=== PATIENT | female | born 1955 | race Caucasian/White ===

== ENCOUNTER → 2017-10-31 | Outpatient (CLI) | payer MEDICARE, OTHER ==
[~2017-10-31] MED LIST: AC325T PO; ALBU8.5H2 IH; ALBU8.5H2 PO; ALBU8.5HRX IH; AMLO5TAB2 PO; ARTHROTEC; ASP81CT; ASP81TEC PO; CALC-140 PO; CETI10CA PO; CLAR-19 PO; CTLP20T PO; CYCL10TA9 PO; DICL/MIS50 PO; DICL100G13 TOP; DICL1TAB49 PO; DILT120C54 PO; DILT180C67 PO; DOCU100C37 PO; DOXY100C42 PO; DULO30CA3 PO; DULO60CA6 PO; ENXP40I.4 SC; ESCI10TA55 PO; FENT1PAT58 TD; FENT1PAT9 TD; FLD5TCR; FLD5TCR PO; FLUT16SP22 NS; FLUT1DIS26 IH; FLUT1DIS26 PO; FLUT8AER2 IH; FNT25TD TOP; FOLI0.4T2 PO; FOLI0.8C PO; GABA300C PO; GABA600T2 PO; GBPN600T PO; HDR2A IV; HYDR1TAB66 PO; IBUP-15 PO; INSU100V5 SC; INSU100V5 SQ; Insulin Human Lispro SC; K ZOSYN IV; KCL20TCR PO; LOSA50TA6 PO; LSRT50T PO; LVF500T; MAGN400T6 PO; MERO500V IV; METF-380 PO; METH4TAB PO; MMT17NA; MNTL10T PO; MONT10TA21 PO; MONT10TA24 PO; MTF500T PO; MULT-1029 PO; MULT1TAB63 PO; NACL30SP2 NS; NAFCILLIN 2 GM IV; NF-DICLTB PO; NF-DURA12P TD; NF-METANX; NS10S IV; OMEP10CA4 PO; OMEP20CA12 PO; ONDA2VIA IV; OSCAL PO; OXC20TCR PO; OXC5T PO; OXYC-12 PO; OXYC-191 PO; OXYC-473 PO; Oxycodone Hcl PO; PANT20TA2 PO; PANT40TA2 PO; PED18TAB2 PO; POLY17PO23 PO; POTA10TA PO; POTA10TA36 PO; POTA20TA15 PO; PRD20T PO; PREDNISON; PROP1TAB77; PSEU240T5 PO; Pantoprazole Sodium PO; Polyethylene Glycol PO; RT-ADVAIR1 IH; SENN-1 PO; SENN1TAB76 PO; SULF-222 PO; SULF1TAB7 PO; THIA100T12 PO; THIA100T7 PO; TIZA4TAB55 PO; TRIA1TAB3 PO; TRIA1TAB42; TRIA1TAB5 PO; Tizanidine Hcl PO; VALACYCLOVIR HCL PO; ZOFRAN; [UNRECOGNIZED DRUG - OTHER] IV; [UNRECOGNIZED DRUG - OTHER] PO; fentanyl patch TD; hctz; metanx
== END ==
LOC: RAD 14:50
PROVIDERS: ATTEND Nurse Practitioner Family
DX: Z12.31 Encounter for screening mammogram for malignant neoplasm of breast (principal)
CPT/HCPCS: 77067

== ENCOUNTER → 2018-02-21 | Outpatient (CLI) | payer MEDICARE, OTHER ==
--- NOTE | 2018-02-21 12:08 | Diagnostic Imaging Report ---
PROCEDURE: US Thyroid. TECHNIQUE: Multiple real-time grayscale images were obtained of the thyroid in various projections. INDICATION: Abnormal thyroid function studies. No prior study is available for comparison. FINDINGS: The right lobe of the thyroid measures 3.7 x 2.0 x 1.7 cm and the left lobe measures 3.3 x 1.7 x 1.1 cm. The left lobe does contain a fairly well-circumscribed solid nodule in the mid upper aspect measuring 1.2 x 0.7 x 0.8 cm. No associated microcalcifications are seen. The right lobe does contain a solid mass in the mid to lower pole measuring 1.8 x 1.0 x 1.1 cm this appears to contain a macrocalcification. No other thyroid masses are seen. IMPRESSION: Bilateral thyroid nodules. Dominant nodule is on the right and does contain calcification. Fine needle aspiration of the right sided nodule would be recommended for further evaluation. Dictated by: Dictated on workstation # [id number]
== END ==
LOC: RAD 10:44
PROVIDERS: ATTEND Family Medicine
DX: E04.2 Nontoxic multinodular goiter (principal)
CPT/HCPCS: 76536

== ENCOUNTER → 2018-03-03 | Outpatient (CLI) | payer MEDICARE, OTHER ==
[~2018-03-03] VITALS: Ht 157.5 cm; Wt 112.0 kg
[~2018-03-03] MED LIST changes: +LIDOCAINE 1% INJ 50 ML (XYLOCAINE) VIAL IJ ONE
[2018-03-03 13:02] VITALS: BP 124/81
[2018-03-03 13:55] VITALS: BP 126/80
--- NOTE | 2018-03-03 16:23 | Diagnostic Imaging Report ---
INDICATION: Thyroid nodules. The patient presents for right thyroid nodule fine-needle aspiration. FINDINGS: The patient was brought to the procedure room and placed on the bed in the supine position. Ultrasound imaging over the right neck was performed to evaluate for an appropriate entry site. The neck was prepped and draped in the usual sterile fashion. A small amount of 1% lidocaine was utilized for local anesthesia. A total of 4 passes was made into the solid nodule in the lower pole of the right lobe of the thyroid utilizing 25-gauge needles. Fine-needle aspiration was performed. Hemostasis was obtained using manual compression. The patient tolerated the procedure well and left the Department in stable condition. IMPRESSION: Ultrasound guided fine needle aspiration of the solid nodule in the lower pole of the right lobe of the thyroid, as described. Dictated by: Dictated on workstation # [id number]
== END ==
LOC: RAD 12:53
PROVIDERS: ATTEND Family Medicine
DX: E04.2 Nontoxic multinodular goiter (principal)
CPT/HCPCS: 76942; 88305

== ENCOUNTER 2018-06-19 15:36 | Outpatient (RCR) | payer MEDICARE, OTHER | END 2018-07-29 13:29 | disposition home or self-care (01) | PROVIDERS: ATTEND Orthopaedic Surgery Adult Reconstructive Orthopaedic Surgery | DX: M25.562 Pain in left knee (principal); M25.561 Pain in right knee ==

== ENCOUNTER → 2018-06-19 | Outpatient (CLI) | payer MEDICARE, OTHER ==
[~2018-06-19] MED LIST changes: -LIDOCAINE 1% INJ 50 ML (XYLOCAINE) VIAL IJ ONE
[2018-06-19 08:18] LABS: BASOPHILS % (AUTO) 1 % (0-10); EOSINOPHILS # (AUTO) 0.4 10^3/uL (0.0-0.3); EOSINOPHILS % (AUTO) 5 % (0-10); HEMATOCRIT 41 % (35-52); HEMOGLOBIN 13.2 G/DL (11.5-16.0); LYMPHOCYTES # (AUTO) 2.7 X 10^3 (1.0-4.0); LYMPHOCYTES % (AUTO) 37 % (12-44); MEAN CORPUSCULAR HGB CONC 32 G/DL (32-36); MEAN CORPUSCULAR VOLUME 94 FL (80-99); MEAN PLATELET VOLUME 10.5 FL (7.4-10.4); MONOCYTES # (AUTO) 0.5 X 10^3 (0.0-1.0); MONOCYTES % (AUTO) 6 % (0-12); NEUTROPHILS # (AUTO) 3.7 X 10^3 (1.8-7.8); NEUTROPHILS % (AUTO) 51 % (42-75); PLATELET COUNT 262 10^3/uL (130-400); RED BLOOD COUNT 4.33 10^6/uL (4.35-5.85); RED CELL DISTRIBUTION WIDTH 14.2 % (10.0-14.5); WHITE BLOOD COUNT 7.2 10^3/uL (4.3-11.0)
[2018-06-19 08:19] LABS: MEAN CORPUSCULAR HEMOGLOBIN 30 PG (25-34)
[2018-06-19 08:36] LABS: ALANINE AMINOTRANSFERASE 17 U/L (0-55); ALBUMIN 4.1 GM/DL (3.2-4.5); ALKALINE PHOSPHATASE 43 U/L (40-136); BILIRUBIN,TOTAL 0.6 MG/DL (0.1-1.0); BUN/CREATININE RATIO 18; CALCIUM 9.5 MG/DL (8.5-10.1); CARBON DIOXIDE 29 MMOL/L (21-32); CHLORIDE 102 MMOL/L (98-107); CHOLESTEROL 151 MG/DL (< 200); CREATININE SERUM 0.93 MG/DL (0.60-1.30); GFR ESTIMATED > 60; GLUCOSE 91 MG/DL (70-105); HDL CHOLESTEROL 56 MG/DL (40-60); POTASSIUM 4.4 MMOL/L (3.6-5.0); SODIUM 140 MMOL/L (135-145); TOTAL PROTEIN 6.4 GM/DL (6.4-8.2); TRIGLYCERIDES 66 MG/DL (<150); VLDL CHOLESTEROL 13 MG/DL (5-40)
[2018-06-19 08:57] LABS: FREE T4 (FREE THYROXINE) 1.17 NG/DL (0.70-1.48)
== END ==
LOC: LAB 07:52
PROVIDERS: ATTEND Family Medicine
DX: I10 Essential (primary) hypertension (principal); R94.6 Abnormal results of thyroid function studies; E55.9 Vitamin D deficiency, unspecified
CPT/HCPCS: 36415; 80053; 80061; 82306; 84439; 84443; 85025

== ENCOUNTER 2018-08-06 12:55 | Outpatient (RCR) | payer MEDICARE, OTHER | END 2018-08-10 | disposition home or self-care (01) | PROVIDERS: ATTEND Orthopaedic Surgery Adult Reconstructive Orthopaedic Surgery | DX: Z47.1 Aftercare following joint replacement surgery (principal); Z96.651 Presence of right artificial knee joint ==

== ENCOUNTER 2018-09-01 13:00 | Outpatient (RCR) | payer MEDICARE, OTHER | END 2018-09-12 14:02 | disposition home or self-care (01) | PROVIDERS: ATTEND Orthopaedic Surgery Adult Reconstructive Orthopaedic Surgery | DX: Z47.1 Aftercare following joint replacement surgery (principal); Z96.651 Presence of right artificial knee joint ==

== ENCOUNTER → 2018-11-28 | Outpatient (CLI) | payer MEDICARE, OTHER ==
--- NOTE | 2018-11-28 14:12 | Diagnostic Imaging Report ---
INDICATION: Routine screening. COMPARISON: 10/31/2017 and 12/09/2014. TECHNIQUE: 2D and 3D bilateral screening mammography was performed with CAD. FINDINGS: Both breasts remain heterogeneously dense, limiting the sensitivity of mammography. No mass or malignant appearing microcalcifications are seen. The axillae are unremarkable. IMPRESSION: No mammographic features suspicious for malignancy are identified. ACR BI-RADS Category 1: Negative. Result letter will be mailed to the patient. Note: At least 10% of breast cancer is not imaged by mammography. Dictated by: Dictated on workstation # [id number]
== END ==
LOC: RAD 10:03
PROVIDERS: ATTEND Nurse Practitioner Family
DX: Z12.31 Encounter for screening mammogram for malignant neoplasm of breast (principal)
CPT/HCPCS: 77067

== ENCOUNTER 2019-01-05 09:45 | Outpatient (RCR) | payer MEDICARE, OTHER ==
[~2019-01-05 09:45] MED LIST changes: -GABA600T2 PO
== END 2019-01-27 10:04 | disposition home or self-care (01) ==
PROVIDERS: ATTEND Orthopaedic Surgery Adult Reconstructive Orthopaedic Surgery
DX: Z47.1 Aftercare following joint replacement surgery (principal); Z96.652 Presence of left artificial knee joint

== ENCOUNTER → 2019-01-28 | Outpatient (CLI) | payer MEDICARE, OTHER ==
[2019-01-30 12:45] LABS: BUN/CREATININE RATIO 14; CALCIUM 8.5 MG/DL (8.5-10.1); CARBON DIOXIDE 30 MMOL/L (21-32); CHLORIDE 103 MMOL/L (98-107); CREATININE SERUM 0.79 MG/DL (0.60-1.30); GFR ESTIMATED > 60; GLUCOSE 92 MG/DL (70-105); POTASSIUM 4.5 MMOL/L (3.6-5.0); SODIUM 140 MMOL/L (135-145)
== END ==
LOC: LABNPT 09:47
PROVIDERS: ATTEND Internal Medicine Infectious Disease
DX: T84.54XA Infection and inflammatory reaction due to internal left knee prosthesis, initial encounter (principal)
CPT/HCPCS: 80048; 80202

== ENCOUNTER → 2019-02-02 | Outpatient (CLI) | payer MEDICARE, OTHER ==
[2019-02-02 09:11] LABS: BASOPHILS % (AUTO) 1 % (0-10); EOSINOPHILS # (AUTO) 0.8 10^3/uL (0.0-0.3); EOSINOPHILS % (AUTO) 12 % (0-10); HEMATOCRIT 34 % (35-52); HEMOGLOBIN 10.8 G/DL (11.5-16.0); LYMPHOCYTES # (AUTO) 2.1 X 10^3 (1.0-4.0); LYMPHOCYTES % (AUTO) 30 % (12-44); MEAN CORPUSCULAR HEMOGLOBIN 29 PG (25-34); MEAN CORPUSCULAR HGB CONC 31 G/DL (32-36); MEAN CORPUSCULAR VOLUME 93 FL (80-99); MEAN PLATELET VOLUME 9.9 FL (7.4-10.4); MONOCYTES # (AUTO) 0.5 X 10^3 (0.0-1.0); MONOCYTES % (AUTO) 8 % (0-12); NEUTROPHILS # (AUTO) 3.5 X 10^3 (1.8-7.8); NEUTROPHILS % (AUTO) 50 % (42-75); PLATELET COUNT 390 10^3/uL (130-400); WHITE BLOOD COUNT 7.1 10^3/uL (4.3-11.0)
[2019-02-02 09:33] LABS: ALANINE AMINOTRANSFERASE 8 U/L (0-55); ALBUMIN 3.2 GM/DL (3.2-4.5); ALKALINE PHOSPHATASE 54 U/L (40-136); BILIRUBIN,TOTAL 0.4 MG/DL (0.1-1.0); BUN/CREATININE RATIO 18; CALCIUM 8.7 MG/DL (8.5-10.1); CARBON DIOXIDE 26 MMOL/L (21-32); CHLORIDE 105 MMOL/L (98-107); CREATININE SERUM 0.77 MG/DL (0.60-1.30); GFR ESTIMATED > 60; GLUCOSE 94 MG/DL (70-105); POTASSIUM 4.1 MMOL/L (3.6-5.0); SODIUM 142 MMOL/L (135-145); TOTAL PROTEIN 6.1 GM/DL (6.4-8.2)
[2019-02-02 09:36] LABS: ERYTHROCYTE SEDIMENTATION RATE 33 MM/HR (0-30)
[2019-02-02 09:38] LABS: VANCOMYCIN,TROUGH 14.6 UG/ML (10.0-20.0)
== END ==
LOC: HH 08:00
PROVIDERS: ATTEND Internal Medicine Infectious Disease
DX: M00.9 Pyogenic arthritis, unspecified (principal)
CPT/HCPCS: 80053; 80202; 85025; 85652; 86141

== ENCOUNTER → 2019-02-09 | Outpatient (CLI) | payer MEDICARE, OTHER ==
[2019-02-09 09:41] LABS: BASOPHILS % (AUTO) 1 % (0-10); EOSINOPHILS # (AUTO) 0.7 10^3/uL (0.0-0.3); EOSINOPHILS % (AUTO) 11 % (0-10); HEMATOCRIT 34 % (35-52); HEMOGLOBIN 10.7 G/DL (11.5-16.0); LYMPHOCYTES # (AUTO) 1.6 X 10^3 (1.0-4.0); LYMPHOCYTES % (AUTO) 25 % (12-44); MEAN CORPUSCULAR HEMOGLOBIN 29 PG (25-34); MEAN CORPUSCULAR HGB CONC 31 G/DL (32-36); MEAN CORPUSCULAR VOLUME 93 FL (80-99); MEAN PLATELET VOLUME 10.3 FL (7.4-10.4); MONOCYTES # (AUTO) 0.4 X 10^3 (0.0-1.0); MONOCYTES % (AUTO) 6 % (0-12); NEUTROPHILS # (AUTO) 3.8 X 10^3 (1.8-7.8); NEUTROPHILS % (AUTO) 58 % (42-75); PLATELET COUNT 333 10^3/uL (130-400); RED CELL DISTRIBUTION WIDTH 14.1 % (10.0-14.5); WHITE BLOOD COUNT 6.6 10^3/uL (4.3-11.0)
[2019-02-09 09:54] LABS: ALANINE AMINOTRANSFERASE 10 U/L (0-55); ALBUMIN 3.1 GM/DL (3.2-4.5); ALKALINE PHOSPHATASE 47 U/L (40-136); BILIRUBIN,TOTAL 0.3 MG/DL (0.1-1.0); BUN/CREATININE RATIO 19; CALCIUM 8.9 MG/DL (8.5-10.1); CARBON DIOXIDE 24 MMOL/L (21-32); CHLORIDE 106 MMOL/L (98-107); GFR ESTIMATED > 60; GLUCOSE 98 MG/DL (70-105); POTASSIUM 4.1 MMOL/L (3.6-5.0); SODIUM 139 MMOL/L (135-145)
[2019-02-09 09:59] LABS: ERYTHROCYTE SEDIMENTATION RATE 23 MM/HR (0-30)
[2019-02-09 10:02] LABS: VANCOMYCIN,TROUGH 14.3 UG/ML (10.0-20.0)
== END ==
LOC: HH 08:00
PROVIDERS: ATTEND Internal Medicine Infectious Disease
DX: M00.9 Pyogenic arthritis, unspecified (principal); N39.0 Urinary tract infection, site not specified
CPT/HCPCS: 80053; 80202; 85025; 85652; 86141

== ENCOUNTER → 2019-02-16 | Outpatient (CLI) | payer MEDICARE, OTHER ==
[2019-02-16 09:17] LABS: BASOPHILS % (AUTO) 1 % (0-10); EOSINOPHILS # (AUTO) 0.9 10^3/uL (0.0-0.3); EOSINOPHILS % (AUTO) 15 % (0-10); HEMATOCRIT 36 % (35-52); HEMOGLOBIN 11.5 G/DL (11.5-16.0); LYMPHOCYTES # (AUTO) 1.7 X 10^3 (1.0-4.0); LYMPHOCYTES % (AUTO) 27 % (12-44); MEAN CORPUSCULAR HEMOGLOBIN 29 PG (25-34); MEAN CORPUSCULAR HGB CONC 32 G/DL (32-36); MEAN CORPUSCULAR VOLUME 92 FL (80-99); MEAN PLATELET VOLUME 10.1 FL (7.4-10.4); MONOCYTES # (AUTO) 0.4 X 10^3 (0.0-1.0); MONOCYTES % (AUTO) 7 % (0-12); NEUTROPHILS # (AUTO) 3.2 X 10^3 (1.8-7.8); NEUTROPHILS % (AUTO) 51 % (42-75); PLATELET COUNT 317 10^3/uL (130-400); WHITE BLOOD COUNT 6.2 10^3/uL (4.3-11.0)
[2019-02-16 09:38] LABS: ALANINE AMINOTRANSFERASE 14 U/L (0-55); ALBUMIN 3.2 GM/DL (3.2-4.5); ALKALINE PHOSPHATASE 45 U/L (40-136); BILIRUBIN,TOTAL 0.3 MG/DL (0.1-1.0); BUN/CREATININE RATIO 23; CARBON DIOXIDE 27 MMOL/L (21-32); CHLORIDE 106 MMOL/L (98-107); CREATININE SERUM 0.74 MG/DL (0.60-1.30); GFR ESTIMATED > 60; GLUCOSE 104 MG/DL (70-105); POTASSIUM 4.3 MMOL/L (3.6-5.0); SODIUM 140 MMOL/L (135-145)
[2019-02-16 09:43] LABS: BAND NEUTROPHILS 1 %; BASOPHILS % (MANUAL) 1 %; ELLIPT/OVALOCYTES SLIGHT; EOSINOPHILS % (MANUAL) 18 %; LYMPHOCYTES % (MANUAL) 28 %; MONOCYTES % (MANUAL) 7 %; NEUTROPHILS % (MANUAL) 45 %
[2019-02-16 09:45] LABS: VANCOMYCIN,TROUGH 13.7 UG/ML (10.0-20.0)
[2019-02-16 10:06] LABS: ERYTHROCYTE SEDIMENTATION RATE 20 MM/HR (0-30)
== END ==
LOC: HH 08:00
PROVIDERS: ATTEND Internal Medicine Infectious Disease
DX: M00.9 Pyogenic arthritis, unspecified (principal)
CPT/HCPCS: 80053; 80202; 85007; 85027; 85652; 86141

== ENCOUNTER → 2019-02-23 | Outpatient (CLI) | payer MEDICARE, OTHER ==
[2019-02-23 10:50] LABS: BASOPHILS % (AUTO) 0 % (0-10); EOSINOPHILS # (AUTO) 0.6 10^3/uL (0.0-0.3); EOSINOPHILS % (AUTO) 10 % (0-10); HEMATOCRIT 37 % (35-52); HEMOGLOBIN 11.7 G/DL (11.5-16.0); LYMPHOCYTES # (AUTO) 1.7 X 10^3 (1.0-4.0); LYMPHOCYTES % (AUTO) 27 % (12-44); MEAN CORPUSCULAR HEMOGLOBIN 29 PG (25-34); MEAN CORPUSCULAR HGB CONC 32 G/DL (32-36); MEAN CORPUSCULAR VOLUME 92 FL (80-99); MEAN PLATELET VOLUME 11.1 FL (7.4-10.4); MONOCYTES # (AUTO) 0.5 X 10^3 (0.0-1.0); MONOCYTES % (AUTO) 8 % (0-12); NEUTROPHILS # (AUTO) 3.3 X 10^3 (1.8-7.8); NEUTROPHILS % (AUTO) 55 % (42-75); PLATELET COUNT 353 10^3/uL (130-400); RED CELL DISTRIBUTION WIDTH 14.1 % (10.0-14.5); WHITE BLOOD COUNT 6.1 10^3/uL (4.3-11.0)
[2019-02-23 11:02] LABS: ALANINE AMINOTRANSFERASE 15 U/L (0-55); ALBUMIN 3.4 GM/DL (3.2-4.5); ALKALINE PHOSPHATASE 47 U/L (40-136); BILIRUBIN,TOTAL 0.4 MG/DL (0.1-1.0); BUN/CREATININE RATIO 31; CARBON DIOXIDE 25 MMOL/L (21-32); CHLORIDE 107 MMOL/L (98-107); CREATININE SERUM 0.78 MG/DL (0.60-1.30); GFR ESTIMATED > 60; GLUCOSE 98 MG/DL (70-105); POTASSIUM 4.2 MMOL/L (3.6-5.0); SODIUM 140 MMOL/L (135-145); TOTAL PROTEIN 6.4 GM/DL (6.4-8.2)
[2019-02-23 11:08] LABS: VANCOMYCIN,TROUGH 14.4 UG/ML (10.0-20.0)
[2019-02-23 11:16] LABS: ERYTHROCYTE SEDIMENTATION RATE 20 MM/HR (0-30)
== END ==
LOC: HH 08:00
PROVIDERS: ATTEND Internal Medicine Infectious Disease
DX: M00.9 Pyogenic arthritis, unspecified (principal)
CPT/HCPCS: 80053; 80202; 85025; 85652; 86141

== ENCOUNTER → 2019-03-02 | Outpatient (CLI) | payer MEDICARE, OTHER ==
[2019-03-02 10:21] LABS: BASOPHILS % (AUTO) 1 % (0-10); EOSINOPHILS # (AUTO) 0.5 10^3/uL (0.0-0.3); EOSINOPHILS % (AUTO) 8 % (0-10); HEMATOCRIT 37 % (35-52); HEMOGLOBIN 11.8 G/DL (11.5-16.0); LYMPHOCYTES % (AUTO) 35 % (12-44); MEAN CORPUSCULAR HEMOGLOBIN 29 PG (25-34); MEAN CORPUSCULAR HGB CONC 32 G/DL (32-36); MEAN CORPUSCULAR VOLUME 92 FL (80-99); MEAN PLATELET VOLUME 11.2 FL (7.4-10.4); MONOCYTES # (AUTO) 0.4 X 10^3 (0.0-1.0); MONOCYTES % (AUTO) 7 % (0-12); NEUTROPHILS # (AUTO) 2.8 X 10^3 (1.8-7.8); NEUTROPHILS % (AUTO) 49 % (42-75); PLATELET COUNT 336 10^3/uL (130-400); RED CELL DISTRIBUTION WIDTH 14.3 % (10.0-14.5); WHITE BLOOD COUNT 5.7 10^3/uL (4.3-11.0)
[2019-03-02 10:32] LABS: ALANINE AMINOTRANSFERASE 18 U/L (0-55); ALBUMIN 3.4 GM/DL (3.2-4.5); ALKALINE PHOSPHATASE 48 U/L (40-136); BILIRUBIN,TOTAL 0.3 MG/DL (0.1-1.0); BUN/CREATININE RATIO 28; CALCIUM 9.1 MG/DL (8.5-10.1); CARBON DIOXIDE 25 MMOL/L (21-32); CHLORIDE 107 MMOL/L (98-107); GFR ESTIMATED > 60; GLUCOSE 105 MG/DL (70-105); POTASSIUM 4.8 MMOL/L (3.6-5.0); SODIUM 139 MMOL/L (135-145); TOTAL PROTEIN 6.3 GM/DL (6.4-8.2)
[2019-03-02 10:37] LABS: VANCOMYCIN,TROUGH 19.5 UG/ML (10.0-20.0)
[2019-03-02 11:01] LABS: ERYTHROCYTE SEDIMENTATION RATE 8 MM/HR (0-30)
== END ==
LOC: HH 08:00
PROVIDERS: ATTEND Internal Medicine Infectious Disease
DX: N39.0 Urinary tract infection, site not specified (principal); T84.54XA Infection and inflammatory reaction due to internal left knee prosthesis, initial encounter
CPT/HCPCS: 80053; 80202; 85025; 85652; 86141

== ENCOUNTER → 2019-03-09 | Outpatient (CLI) | payer MEDICARE, OTHER ==
[2019-03-09 11:16] LABS: BASOPHILS % (AUTO) 1 % (0-10); EOSINOPHILS # (AUTO) 0.5 10^3/uL (0.0-0.3); EOSINOPHILS % (AUTO) 10 % (0-10); HEMATOCRIT 37 % (35-52); HEMOGLOBIN 11.6 G/DL (11.5-16.0); LYMPHOCYTES # (AUTO) 1.7 X 10^3 (1.0-4.0); LYMPHOCYTES % (AUTO) 32 % (12-44); MEAN CORPUSCULAR HEMOGLOBIN 29 PG (25-34); MEAN CORPUSCULAR HGB CONC 32 G/DL (32-36); MEAN CORPUSCULAR VOLUME 91 FL (80-99); MEAN PLATELET VOLUME 11.4 FL (7.4-10.4); MONOCYTES # (AUTO) 0.3 X 10^3 (0.0-1.0); MONOCYTES % (AUTO) 6 % (0-12); NEUTROPHILS # (AUTO) 2.6 X 10^3 (1.8-7.8); NEUTROPHILS % (AUTO) 51 % (42-75); PLATELET COUNT 267 10^3/uL (130-400); RED CELL DISTRIBUTION WIDTH 14.3 % (10.0-14.5); WHITE BLOOD COUNT 5.2 10^3/uL (4.3-11.0)
[2019-03-09 11:21] LABS: ALANINE AMINOTRANSFERASE 18 U/L (0-55); ALBUMIN 3.3 GM/DL (3.2-4.5); ALKALINE PHOSPHATASE 52 U/L (40-136); BILIRUBIN,TOTAL 0.5 MG/DL (0.1-1.0); BUN/CREATININE RATIO 22; CALCIUM 8.8 MG/DL (8.5-10.1); CARBON DIOXIDE 24 MMOL/L (21-32); CHLORIDE 107 MMOL/L (98-107); CREATININE SERUM 0.77 MG/DL (0.60-1.30); GFR ESTIMATED > 60; GLUCOSE 88 MG/DL (70-105); POTASSIUM 4.3 MMOL/L (3.6-5.0); SODIUM 140 MMOL/L (135-145)
[2019-03-09 11:26] LABS: VANCOMYCIN,TROUGH 16.8 UG/ML (10.0-20.0)
[2019-03-09 11:37] LABS: ERYTHROCYTE SEDIMENTATION RATE 8 MM/HR (0-30)
== END ==
LOC: HH 08:00
PROVIDERS: ATTEND Internal Medicine Infectious Disease
DX: N39.0 Urinary tract infection, site not specified (principal); M00.9 Pyogenic arthritis, unspecified
CPT/HCPCS: 80053; 80202; 85025; 85652; 86141

== ENCOUNTER 2019-10-10 19:05 | Emergency (ER) | payer MEDICARE, OTHER ==
[~2019-10-10] VITALS: Ht 160 cm; Wt 97.0 kg
[~2019-10-10 19:05] MED LIST changes: -OMEP10CA4 PO; +OMEP10CA5 PO
--- NOTE | 2019-10-10 20:12 | Diagnostic Imaging Report ---
INDICATION: Left ankle pain 3 views of the left ankle show a nondisplaced avulsion fracture of the tip of the medial malleolus. Lateral malleolus appears to be intact. Ankle mortise is preserved. IMPRESSION: Avulsion fracture of the tip of the medial malleolus. Dictated by: Dictated on workstation # [id number]
--- NOTE | 2019-10-10 20:13 | Diagnostic Imaging Report ---
INDICATION: Left foot pain There are postoperative changes from bunion repair. There is an avulsion fracture of the tip of the medial malleolus. IMPRESSION: Avulsion fracture of the tip of the medial malleolus. Dictated by: Dictated on workstation # [id number]
--- NOTE | 2019-10-10 20:13 | Diagnostic Imaging Report ---
INDICATION: Left leg pain. EXAMINATION: Lateral and AP views of the tibia and fibula were obtained. FINDINGS: Postsurgical changes from a revised left knee arthroplasty with long femoral and tibial stems. No evidence of loosening. There appears to be an avulsion of the tip of the medial malleolus. IMPRESSION: Avulsion fracture tip of the medial malleolus. Dictated by: Dictated on workstation # [id number]
--- NOTE | 2019-10-10 20:14 | Diagnostic Imaging Report ---
INDICATION: Left knee pain AP and lateral views of the left knee show postoperative changes from revised knee arthroplasty. There is no evidence of loosening of prosthesis. There is no acute fracture in or around the knee. IMPRESSION: Postoperative changes from left knee arthroplasty. No acute abnormality seen. Dictated by: Dictated on workstation # [id number]
--- NOTE | 2019-10-10 20:37 | ED Fall/Injury ---
General Chief Complaint: Lower Extremity Stated Complaint: FALL - L ANKLE/KNEE PAIN Nursing Triage Note: Patient c/o L ankle pain and L knee pain after a fall this morning. Source: patient, family Exam Limitations: no limitations History of Present Illness Date Seen by Provider: Oct 10, 2019 Time Seen by Provider: 19:25 Initial Comments This 63-year-old woman presents with left lower extremity injuries after having a fall this morning. She has chronic left foot drop which caused her fall. She complains of swelling around her ankle and pain in the knee, lower leg, and ankle. She is uncertain of the extent of her injuries because she has significant neuropathy which dulls her sensation of pain. She reports extreme flexion of the knee as she came down on her lower extremity with her body weight. She is having difficulty bearing weight because of the pain. Allergies and Home Medications Allergies Coded Allergies: Cephalosporins (Verified Allergy, Intermediate, HIVES, 09/11/15) HIVES AND RASH- PER PATIENT Home Medications Albuterol 8.5 Gm Hfa.aer.ad, 2 PUFF IH Q6H PRN for WHEEZING, (Reported) NEEDED FOR WHEEZING Aspirin 81 Mg Tabec, 81 MG PO HS, (Reported) Calcium Carbonate/Vitamin D3 1 Each Tablet, 1 EACH PO BID, (Reported) Diltiazem HCl 180 Mg Cap.er.24h, 180 MG PO BID Prescribed by: SHERWIN MAGAÑA on 09/11/15 153 Docusate Sodium 100 Mg Capsule, 100 MG PO BID Prescribed by: SHERWIN MAGAÑA on 09/11/15 151 Escitalopram Oxalate 10 Mg Tablet, 10 MG PO HS Prescribed by: SHERWIN MAGAÑA on 09/11/15 151 Fentanyl 1 Each Patch.td72, 50 MCG TD Q72H Prescribed by: KAE AGUILAR on 09/26/152038 Fluticasone/Salmeterol 1 Puff Puff, 1 PUFF IH BID, (Reported) Folic Acid 0.8 Mg Capsule, 0.8 MG PO DAILY Prescribed by: SHERWIN MAGAÑA on 09/11/151510 Gabapentin 600 Mg Tablet, 1,200 MG PO BID Prescribed by: SHERWIN MAGAÑA on 09/11/151510 Magnesium Oxide 400 Mg Tablet, 400 MG PO TID, (Reported) WITH MEALS Mometasone Furoate 17 Gm Naspr, 2 SPRAYS NA DAILY, (Reported) Montelukast Sodium 10 Mg Tablet, 10 MG PO HS, (Reported) Mu-Vits-Min Th/Lycopene/Lutein 1 Each Tablet, 1 TAB PO DAILY, (Reported) Omeprazole 10 Mg Capsule.dr, 10 MG PO DAILY, (Reported) Oxycodone HCl 5 Mg Tablet, 5-15 MG PO Q3H PRN for PAIN Prescribed by: ASHLEY CACERES on 09/16/15 151 Potassium Chloride 20 Meq Tab.prt.sr, 20 MEQ PO DAILY, (Reported) Thiamine HCl 100 Mg Tablet, 200 MG PO DAILY, (Reported) Tizanidine Hcl 4 Mg Tablet, 4 MG PO Q8H PRN for MUSCLE SPASMS, (Reported) NEEDED FOR MUSCLE SPASMS Triamterene/Hydrochlorothiazid 1 Each Tablet, 0.5 EACH PO DAILY Prescribed by: SHERWIN MAGAÑA on 09/11/15 151 [Oxycodone Hcl] 10 MG TAB, 10 MG PO BID 10 MG Prescribed by: KAE AGUILAR on 09/26/152038 Patient Home Medication List Home Medication List Reviewed: Yes Review of Systems Review of Systems Constitutional: no symptoms reported Eyes: No Symptoms Reported Ears, Nose, Mouth, Throat: no symptoms reported Respiratory: no symptoms reported Cardiovascular: no symptoms reported Gastrointestinal: no symptoms reported Genitourinary: no symptoms reported Musculoskeletal: see HPI Skin: no symptoms reported Psychiatric/Neurological: See HPI Past Ealimrm-Lkgbfl-Rjvjpw Hx Past Med/Social Hx: Reviewed and Corrections made Patient Social History Alcohol Use: Denies Use Recreational Drug Use: No Smoking Status: Never a Smoker 2nd Hand Smoke Exposure: No Recent Foreign Travel: No Contact w/Someone Who Travel: No Recent Infectious Disease Expo: No Recent Hopitalizations: Yes Physical Abuse: No Sexual Abuse: No Mistreated: No Fear: No Immunizations Up To Date Tetanus Booster (TDap): More than 5yrs PED Vaccines UTD: Yes Date of Pneumonia Vaccine: Nov 24, 2013 Date of Influenza Vaccine: Aug 08, 2015 Past Medical History Surgeries: Yes (CARPAL TUNNEL RELEASE ON LEFT, BUNIONECTOMY, LAP-BAND 13', L TOTAL KNEE, ) Orthopedic Respiratory: Yes (REACTIVE AIRWAY DISEASE) Asthma, Chronic Bronchitis Currently Using CPAP: Yes Currently Using BIPAP: No Cardiac: Yes Neurological: Yes (left foot drop) Neuropathy Reproductive Disorders: No Female Reproductive Disorders: Denies Sexually Transmitted Disease: No HIV/AIDS: No Genitourinary: Yes Benign Prostatic Hyperpl Gastrointestinal: Yes (LAP BAND PROCEDURE, REMOVAL) Gall Bladder Disease Musculoskeletal: Yes (STENOSIS L3,4,5, LEFT FOOT DROP , SPINE SURGERY, FUSION) Arthritis, Foot Drop, Chronic Back Pain, Spasms Endocrine: Yes Diabetes, Non-Insulin dep HEENT: No Loss of Vision: Denies Hearing Impairment: Denies Cancer: Yes (BASAL AND SQUAMOS REMOVED) Skin Psychosocial: No Integumentary: No Blood Disorders: No Adverse Reaction/Blood Tranf: No Family Medical History Cancer 03 FATHER 03 MOTHER Family history: Diabetes mellitus 09 BROTHER 09 SISTER Physical Exam Vital Signs Vital Signs - First Documented 10/10/19 19:19 Temp 36.5 Pulse 65 Resp 18 B/P (MAP) 148/84 (105) Pulse Ox 98 Capillary Refill : Less Than 3 Seconds Height, Weight, BMI Height: 5'2.00" Weight: 247lbs. 0.0oz. 112.017001mn; 37.00 BMI Method:Stated General Appearance: WD/WN, no apparent distress, obese HEENT: normal ENT inspection Neck: normal inspection Cardiovascular: regular rate, rhythm, no edema, no murmur Respiratory: lungs clear, normal breath sounds, no respiratory distress Extremities: other (tenderness over the inferior anterior knee. No tenderness of the foot. Mild swelling of the left ankle with generalized tenderness. Ten derness on the ankles greater on the lateral malleolus. Sensation, capillary refill, and movement intact in the toes. Dorsal pedal pulses strong.) Neurologic/Psychiatric: locate technician II-XII nml as tested, alert, normal mood/affect, oriented x 3, other (foot drop and decreased sensation of the left lower extremity) Skin: normal color, warm/dry Progress/Results/Core Measures Results/Orders My Orders Orders - KYLIE JOSE MD Tibia/Fibula, Left, 2 Views (10/10/19 19:35) Knee, Left, 3 Views (10/10/19 19:35) Foot, Left, 3 Views (10/10/19 19:35) Ankle, Left, 3 Views (10/10/19 19:35) Vital Signs/I&O 10/10/19 10/10/19 19:19 20:46 Temp 36.5 36.5 Pulse 65 65 Resp 18 18 B/P (MAP) 148/84 (105) 148/84 (105) Pulse Ox 98 98 Blood Pressure Mean: 105 POS Progress Progress Note : Progress Note Ankle fracture was identified. A boot was applied for stabilization. Patient has assistive devices including a walker at home that she can use for ambul ation. Diagnostic Imaging Diagonstic Imaging: Xray Plain Films/CT/US/NM/MRI: ankle Comments Ankle x-ray viewed by me and report reviewed. See report below: NAME: ANGELICA VALENCIA [facility] REC#: [id number] PT STATUS: REG ER : 1955 PHYSICIAN: KLYIE JOSE MD ADMIT DATE: 10/10/19/ER Signed Date of Exam:10/10/19 ANKLE, LEFT, 3 VIEWS INDICATION: Left ankle pain 3 views of the left ankle show a nondisplaced avulsion fracture of the tip of the medial malleolus. Lateral malleolus appears to be intact. Ankle mortise is preserved. IMPRESSION: Avulsion fracture of the tip of the medial malleolus. Dictated by: Dictated on workstation # [id number] Dict: 10/10/192009 Trans: 10/10/192015 YULISSA [id number] Interpreted by: VICENTA CORNEJO MD Electronically signed by: VICENTA CORNEJO MD 10/10/192015 Diagonstic Imaging: Xray Plain Films/CT/US/NM/MRI: other (left foot) Comments Left foot x-ray viewed by me and report reviewed. See report below: NAME: ANGELICA VALENCIA [facility] REC#: [id number] PT STATUS: REG ER : 1955 PHYSICIAN: KYLIE JOSE MD ADMIT DATE: 10/10/19/ER Signed Date of Exam:10/10/19 FOOT, LEFT, 3 VIEWS INDICATION: Left foot pain There are postoperative changes from bunion repair. There is an avulsion fracture of the tip of the medial malleolus. IMPRESSION: Avulsion fracture of the tip of the medial malleolus. Dictated by: Dictated on workstation # [id number] Dict: 10/10/192008 Trans: 10/10/192015 YULISSA [id number] Interpreted by: VICENTA CORNEJO MD Electronically signed by: VICENTA CORNEJO MD 10/10/192015 Diagonstic Imaging: Xray Plain Films/CT/US/NM/MRI: knee Comments Left knee x-ray viewed by me and report reviewed. See report below: NAME: ANGELICA VALENCIA [facility] REC#: [id number] PT STATUS: REG ER : 1955 PHYSICIAN: KYLIE JOSE MD ADMIT DATE: 10/10/19/ER Signed Date of Exam:10/10/19 KNEE, LEFT, 3 VIEWS INDICATION: Left knee pain AP and lateral views of the left knee show postoperative changes from revised knee arthroplasty. There is no evidence of loosening of prosthesis. There is no acute fracture in or around the knee. IMPRESSION: Postoperative changes from left knee arthroplasty. No acute abnormality seen. Dictated by: Dictated on workstation # [id number] Dict: 10/10/192010 Trans: 10/10/192015 YULISSA [id number] Interpreted by: VICENTA CORNEJO MD Electronically signed by: VICENTA CORNEJO MD 10/10/192015 Diagonstic Imaging: Xray Plain Films/CT/US/NM/MRI: leg Comments X-ray viewed by me and report reviewed. See report below: NAME: ANGELICA VALENCIA [facility] REC#: [id number] PT STATUS: REG ER : 1955 PHYSICIAN: KYLIE JOSE MD ADMIT DATE: 10/10/19/ER Signed Date of Exam:10/10/19 TIBIA/FIBULA, LEFT, 2 VIEWS INDICATION: Left leg pain. EXAMINATION: Lateral and AP views of the tibia and fibula were obtained. FINDINGS: Postsurgical changes from a revised left knee arthroplasty with long femoral and tibial stems. No evidence of loosening. There appears to be an avulsion of the tip of the medial malleolus. IMPRESSION: Avulsion fracture tip of the medial malleolus. Dictated by: Dictated on workstation # [id number] Dict: 10/10/192009 Trans: 10/10/192015 [facility] [id number] Interpreted by: VICENTA CORNEJO MD Electronically signed by: VICENTA CORNEJO MD 10/10/192015 Departure Impression Primary Impression: Fracture of medial malleolus of left tibia Qualified Codes: S82.55XA - Nondisplaced fracture of medial malleolus of left tibia, initial encounter for closed fracture Disposition: HOME, SELF-CARE Condition: Stable Departure-Patient Inst. Decision time for Depature: 20:35 Referrals: JEAN PIERRE POND MD (PCP/Family) Primary Care Physician Patient Instructions: Ankle Fracture Add. Discharge Instructions: Rest, icing in 20 minute intervals, elevation, and use of the boot should help reduce pain and swelling. You may use your previously prescribed pain medications. Please follow-up with an orthopedic provider as soon as possible. Minimal weightbearing to rest your leg on the floor only. Do not bear your body weight on the left leg. All discharge instructions reviewed with patient and/or family. Voiced understanding. Copy Copies To 1: JEAN PIERRE POND MD, JOSHUA T MD Oct 10, 2019 20:37 POS
[2019-10-10 20:46] VITALS: BP 148/84
== END 2019-10-10 20:45 | disposition home or self-care (01) ==
LOC: EDUNIT# 19:05 → ER 19:06
DX: S82.55XA Nondisplaced fracture of medial malleolus of left tibia, initial encounter for closed fracture (principal); J45.909 Unspecified asthma, uncomplicated; E11.40 Type 2 diabetes mellitus with diabetic neuropathy, unspecified; Z85.828 Personal history of other malignant neoplasm of skin; Z99.89 Dependence on other enabling machines and devices; Z98.1 Arthrodesis status; Z88.1 Allergy status to other antibiotic agents; Z79.82 Long term (current) use of aspirin; Z79.51 Long term (current) use of inhaled steroids; W19.XXXA Unspecified fall, initial encounter
CPT/HCPCS: 73562; 73590; 73610; 73630

== ENCOUNTER → 2019-12-08 | Outpatient (CLI) | payer MEDICARE, OTHER ==
--- NOTE | 2019-12-08 13:23 | Diagnostic Imaging Report ---
INDICATION: Routine screening. COMPARISON: Comparison is made with prior mammograms from 11/28/2018 and 10/31/2017. 2-D and 3-D bilateral screening mammography was performed. The current study was also evaluated with a Computer Aided Detection (CAD) system. 3-D tomosynthesis was also performed and reviewed. FINDINGS: Both breasts remain heterogeneously dense, limiting the sensitivity of mammography. There are benign calcifications. The overall parenchymal pattern appears to be stable. No mass or malignant-appearing microcalcifications are seen. Axillae are unremarkable. IMPRESSION: No mammographic features suspicious for malignancy are identified. ACR BI-RADS Category 2: Benign findings. Result letter will be mailed to the patient. Note: At least 10% of breast cancer is not imaged by mammography. Dictated by: Dictated on workstation # [id number]
== END ==
LOC: RAD 09:54
PROVIDERS: ATTEND Nurse Practitioner Family
DX: Z12.31 Encounter for screening mammogram for malignant neoplasm of breast (principal)
CPT/HCPCS: 77067

== ENCOUNTER → 2020-04-07 | Outpatient (CLI) | payer MEDICARE, OTHER ==
--- NOTE | 2020-04-07 17:13 | Diagnostic Imaging Report ---
EXAMINATION: Left foot three views. HISTORY: Left foot pain, fall. COMPARISON: 10/10/2019. FINDINGS: A pin is present in the left distal 1st metatarsal. Wire projects over the left proximal 1st phalanx. Bones are osteopenic. There is a small heel spur. There are old bimalleolar ankle fractures. There is soft tissue swelling of the foot. 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 No acute fracture is seen. IMPRESSION: No acute fracture is seen in the left foot. Dictated by: Dictated on workstation # [id number]
== END ==
LOC: RAD 15:53
PROVIDERS: ATTEND Nurse Practitioner Family
DX: M79.672 Pain in left foot (principal)
CPT/HCPCS: 73630

== ENCOUNTER → 2020-06-21 | Outpatient (CLI) | payer MEDICARE, OTHER ==
--- NOTE | 2020-06-21 12:52 | Diagnostic Imaging Report ---
PROCEDURE: US Thyroid. TECHNIQUE: Multiple Real-time grayscale images were obtained of the thyroid in various projections. INDICATION: Thyroid nodules. FINDINGS: The previous thyroid ultrasound exam of 06/15/2019 noted bilateral thyroid nodules. These appeared stable when compared to the prior study of 06/19/2018. On this study, those findings are again evident and do not appear to have changed significantly. The largest nodule on the right is in the inferior pole and measures 1.6 x 1.1 x 1.3 cm as opposed to 1.7 x 0.9 x 1.4 cm on the prior study. The 1.2 x 0.6 x 0.9 cm nodule in the left lobe of the thyroid seen previously is virtually unchanged as well. No new abnormality has developed and the thyroid gland does not seem to be enlarged. The right lobe measures 4.0 x 2.0 x 1.7 cm and the left lobe is estimated to be 3.3 x 1.8 x 2.2 cm (normal gland size 4-5 x 2 x 2 cm or less). IMPRESSION: The thyroid nodules seen previously appear stable. The thyroid gland itself is not enlarged. Dictated by: Dictated on workstation # [id number]
== END ==
LOC: RAD 10:32
PROVIDERS: ATTEND Otolaryngology Otolaryngology/Facial Plastic Surgery
DX: E04.2 Nontoxic multinodular goiter (principal)
CPT/HCPCS: 76536

== ENCOUNTER 2020-10-08 16:24 | Emergency (ER) | payer MEDICARE, OTHER ==
[~2020-10-08] VITALS: Ht 160 cm; Wt 104.5 kg
--- NOTE | 2020-10-08 17:27 | NUR ---
Javier ACEVEDO APRN TO ROOM
[2020-10-08] MEDS ORDERED: TETANUS,DIPTH,PERTUSS P/F (BOOSTRIX) 0.5 ML VIAL IM ONE (17:45)
[2020-10-08] MEDS ORDERED: LIDOCAINE 1% INJ 20 ML 20 ML VIAL INJ ONE (17:45)
--- NOTE | 2020-10-08 17:58 | NUR ---
BACK FROM X RAY
--- NOTE | 2020-10-08 18:11 | Diagnostic Imaging Report ---
EXAM: Right knee radiograph. EXAM DATE: 10/08/2020. COMPARISON: None. HISTORY: Fall on the right knee with pain and laceration. TECHNIQUE: Three views of the right knee. FINDINGS: Surgical changes from total right knee arthroplasty. Hardware is in good alignment without evidence of adjacent cortical fracture or prosthetic loosening. No acute fracture, dislocation or destructive osseous process. Soft tissues are normal. IMPRESSION: No acute osseous abnormality of the right knee. Dictated by: Dictated on workstation # [id number]
--- NOTE | 2020-10-08 18:56 | NUR ---
REPORT TO STEFANY PALMER.
--- NOTE | 2020-10-08 19:39 | ED Lower Extremity ---
General Chief Complaint: Trauma-Non Activation Stated Complaint: FALL - R KNEE LAC Nursing Triage Note: AMB TO ROOM WITH [facility] REPORTS APX 1317 FELL LACERATION TO R KNEE AREA CONCERN BECAUSE SHE HAD A TOTAL KNEE. AND PMH OF OSTEOMYELITIS. Nursing Sepsis Screen: No Definite Risk History of Present Illness Date Seen by Provider: Oct 08, 2020 Time Seen by Provider: 18:45 Initial Comments This is a well-appearing 64-year-old female who presents to the ER via co mplaints of fall and laceration to her right knee. States she tripped and fell on the concrete in front of her house sustaining injury only to her right knee. Denies hitting head, neck, or having loss of consciousness. States she is able to ambulate on it without difficulty. Unknown last tetanus. No fevers, chills, cough, shortness of breath, nausea, vomiting, diarrhea, numbness, tingling, or loss of sensation. Allergies and Home Medications Allergies Coded Allergies: Cephalosporins (Verified Allergy, Intermediate, HIVES, 09/11/15) HIVES AND RASH- PER PATIENT Home Medications Albuterol 8.5 Gm Hfa.aer.ad, 2 PUFF IH Q6H PRN for WHEEZING, (Reported) NEEDED FOR WHEEZING Aspirin 81 Mg Tabec, 81 MG PO HS, (Reported) Calcium Carbonate/Vitamin D3 1 Each Tablet, 1 EACH PO BID, (Reported) Diltiazem HCl 180 Mg Cap.er.24h, 180 MG PO BID Prescribed by: SHERWIN MAGAÑA on 09/11/15 153 Docusate Sodium 100 Mg Capsule, 100 MG PO BID Prescribed by: SHERWIN MAGAÑA on 09/11/15 151 Escitalopram Oxalate 10 Mg Tablet, 10 MG PO HS Prescribed by: SHERWIN MAGAÑA on 09/11/15 151 Fentanyl 1 Each Patch.td72, 50 MCG TD Q72H Prescribed by: KAE AGUILAR on 09/26/152038 Fluticasone/Salmeterol 1 Puff Puff, 1 PUFF IH BID, (Reported) Folic Acid 0.8 Mg Capsule, 0.8 MG PO DAILY Prescribed by: SHERWIN MAGAÑA on 09/11/151510 Gabapentin 600 Mg Tablet, 1,200 MG PO BID Prescribed by: SHERWIN MAGAÑA on 09/11/151510 Levofloxacin 500 Mg Tablet, 500 MG PO DAILY Prescribed by: LILIA ACEVEDO on 10/08/201943 Magnesium Oxide 400 Mg Tablet, 400 MG PO TID, (Reported) WITH MEALS Mometasone Furoate 17 Gm Naspr, 2 SPRAYS NA DAILY, (Reported) Montelukast Sodium 10 Mg Tablet, 10 MG PO HS, (Reported) Mu-Vits-Min Th/Lycopene/Lutein 1 Each Tablet, 1 TAB PO DAILY, (Reported) Omeprazole 10 Mg Capsule.dr, 10 MG PO DAILY, (Reported) Oxycodone HCl 5 Mg Tablet, 5-15 MG PO Q3H PRN for PAIN Prescribed by: ASHLEY CACERES on 09/16/15 1518 Potassium Chloride 20 Meq Tab.prt.sr, 20 MEQ PO DAILY, (Reported) Thiamine HCl 100 Mg Tablet, 200 MG PO DAILY, (Reported) Tizanidine Hcl 4 Mg Tablet, 4 MG PO Q8H PRN for MUSCLE SPASMS, (Reported) NEEDED FOR MUSCLE SPASMS Triamterene/Hydrochlorothiazid 1 Each Tablet, 0.5 EACH PO DAILY Prescribed by: SHERWIN MAGAÑA on 09/11/15 1511 [Oxycodone Hcl] 10 MG TAB, 10 MG PO BID 10 MG Prescribed by: KAE AGUILAR on 09/26/152038 Patient Home Medication List Home Medication List Reviewed: Yes Review of Systems Constitutional: no symptoms reported EENTM: no symptoms reported Respiratory: no symptoms reported Cardiovascular: no symptoms reported Gastrointestinal: no symptoms reported Genitourinary: no symptoms reported Musculoskeletal: see HPI Skin: see HPI Psychiatric/Neurological: No Symptoms Reported Past Tmkhthd-Ktictw-Usbbkr Hx Patient Social History Alcohol Use: Occasionally Uses Recreational Drug Use: No 2nd Hand Smoke Exposure: No Recent Foreign Travel: No Contact w/Someone Who Travel: No Recent Infectious Disease Expo: No Recent Hopitalizations: Yes Immunizations Up To Date Tetanus Booster (TDap): More than 5yrs PED Vaccines UTD: Yes Date of Pneumonia Vaccine: Nov 24, 2013 Date of Influenza Vaccine: Aug 08, 2015 Past Medical History Surgeries: Yes (CARPAL TUNNEL RELEASE ON LEFT, BUNIONECTOMY, LAP-BAND 13', L TOTAL KNEE, ) Orthopedic Respiratory: Yes (REACTIVE AIRWAY DISEASE) Asthma, Chronic Bronchitis Currently Using CPAP: Yes Currently Using BIPAP: No Cardiac: Yes Neurological: Yes (left foot drop) Neuropathy Reproductive Disorders: No Female Reproductive Disorders: Denies Sexually Transmitted Disease: No HIV/AIDS: No Genitourinary: Yes Benign Prostatic Hyperpl Gastrointestinal: Yes (LAP BAND PROCEDURE, REMOVAL) Gall Bladder Disease Musculoskeletal: Yes (STENOSIS L3,4,5, LEFT FOOT DROP , SPINE SURGERY, FUSION) Arthritis, Foot Drop, Chronic Back Pain, Spasms Endocrine: Yes Diabetes, Non-Insulin dep HEENT: No Loss of Vision: Denies Hearing Impairment: Denies Cancer: Yes (BASAL AND SQUAMOS REMOVED) Skin Psychosocial: No Integumentary: No Blood Disorders: No Adverse Reaction/Blood Tranf: No Family Medical History Cancer 03 FATHER 03 MOTHER Family history: Diabetes mellitus 09 BROTHER 09 SISTER Physical Exam Vital Signs Vital Signs - First Documented 10/08/20 16:36 Temp 36.0 Pulse 56 Resp 18 B/P (MAP) 159/93 (115) Pulse Ox 98 O2 Delivery Room Air Capillary Refill : Less Than 3 Seconds Height, Weight, BMI Height: 5'2.00" Weight: 247lbs. 0.0oz. 112.111583bw; 40.00 BMI Method:Stated General Appearance: WD/WN, no apparent distress HEENT: PERRL/EOMI, normal ENT inspection Cardiovascular: regular rate, rhythm, no murmur Respiratory: lungs clear, normal breath sounds Knees: right knee ecchymosis, right knee soft tissue tenderness, right knee swelling, right knee other (4.5 cm laceration on anterior medial aspect of the knee ) Neurologic/Psychiatric: no motor/sensory deficits, alert, normal mood/affect, oriented x 3 Skin: normal color, warm/dry Procedures/Interventions Wound Location: Other Other Wound Location right knee Wound Length (cm): 4.5 Wound's Depth, Shape: linear Wound Explored: clean Irrigated w/ Saline (ccs): 500 Volume Anesthetic (ccs): 6 Suture: Ethlion, Vicryl Suture Size: 4-0 Number of Sutures: 11 Layer Closure?: 2 Number Deep Layer Sutures: 3 Progress Area was cleansed with chlorhexidine scrub and normal saline. Locally anest hetized area with 6 cc of lidocaine 1%. Pressure irrigated with 500 ml of normal saline. Tolerated well. Approximated incision with 3 deep absorbable 4-0 vicryl sutures and 8, 4-0 nylon sutures. Covered with TOA and dry dressing. Tolerated well. Progress/Results/Core Measures Results/Orders My Orders Orders - [employer] Knee, Right, 3 Views (10/08/20 17:44) Dipht,Pertuss(Acell),Tet Adult (Boostrix (10/08/20 17:45) Lidocaine 1% Inj 20 Ml (Xylocaine 1% Inj (10/08/20 17:45) Sulfamethoxazole/Trimet Ds Tab (Bactrim (10/08/20 19:45) Levofloxacin Tablet (Levaquin Tablet) (10/08/20 19:45) Levofloxacin Tablet (Levaquin Tablet) (10/08/20 19:46) Medications Given in ED Current Medications Medications Dose Ordered Sig/Marimar Route Start Time Stop Time Status Last Admin Dose Admin Diphtheria/ Tetanus/Acell Pertussis 0.5 ml ONCE ONCE IM 10/08/20 17:45 10/08/20 17:46 DC 10/08/20 17:53 0.5 ML Levofloxacin 500 mg ONCE ONCE PO 10/08/20 19:45 10/08/20 19:46 DC 10/08/20 19:50 500 MG Lidocaine HCl 20 ml ONCE ONCE INJ 10/08/20 17:45 10/08/20 17:46 DC 10/08/20 17:54 20 ML Vital Signs/I&O 10/08/20 10/08/20 16:36 19:50 Temp 36.0 36.0 Pulse 56 56 Resp 18 18 B/P (MAP) 159/93 (115) 159/93 (115) Pulse Ox 98 98 O2 Delivery Room Air Room Air Blood Pressure Mean: 115 Progress Progress Note : Progress Note Images obtained of right knee which showed no acute bony injury. Opted to not use Ancef irrigation for wound as patient is noted to be allergic to cephalosporins. However, did extensive pressure irrigation with normal saline after cleansing thoroughly with chlorhexidine and saline wash. Was placed on Levaquin prophylactically as patient is noted to be taking triamterene, which has severe interaction with Bactrim. Additionally, she is highly allergic to cephalosporins. Diagnostic Imaging Diagonstic Imaging: Xray Plain Films/CT/US/NM/MRI: knee Comments NAME: ANGELICA VALENCIA MED REC#: [id number] PT STATUS: REG ER : 1955 PHYSICIAN: LILIA ACEVEDO APRN ADMIT DATE: 10/08/20/ER Signed Date of Exam:10/08/20 KNEE, RIGHT, 3 VIEWS EXAM: Right knee radiograph. EXAM DATE: 10/08/2020. COMPARISON: None. HISTORY: Fall on the right knee with pain and laceration. TECHNIQUE: Three views of the right knee. FINDINGS: Surgical changes from total right knee arthroplasty. Hardware is in good alignment without evidence of adjacent cortical fracture or prosthetic loosening. No acute fracture, dislocation or destructive osseous process. Soft tissues are normal. IMPRESSION: No acute osseous abnormality of the right knee. Dictated by: Dictated on workstation # [id number] Dict: 10/08/201806 Trans: 10/08/201815 PJE [id number] Interpreted by: JEFE CORNEJO DO Electronically signed by: JEFE CORNEJO DO 10/08/201815 Departure Impression Primary Impression: Laceration Disposition: 01 HOME, SELF-CARE Condition: Improved Departure-Patient Inst. Decision time for Depature: 19:36 Referrals: JEAN PIERRE VAZ MD (PCP/Family) Primary Care Physician Patient Instructions: Laceration Repair With Stitches (DC) Add. Discharge Instructions: Plan: 1. Discharge home. 2. Follow up with Dr. Vaz next week. May shower, pat dry, cover with dry dressing. 3. Take Bactrim DS twice a day for ten days. 4. Return to ED or follow up with Dr. Vaz if signs of infection develop: redness, heat, swelling, purulent drainage, increasing pain, fevers. 5. Return to ER on October 19 for suture removal. 6. Keep lower extremity elevated for the next 48-72 hours to reduce swelling. May use ice 20 minutes at a time as needed for comfort. 7. Tetanus updated today. All discharge instructions reviewed with patient and/or family. Voiced understanding. Scripts Levofloxacin (Levofloxacin) 500 Mg Tablet 500 MG PO DAILY for 7 Days, #7 TAB 0 Refills Prov: LILIA ACEVEDO APRN 10/08/20 LILIA ACEVEDO APRN Oct 08, 2020 19:39
[2020-10-08] MEDS ORDERED: LEVO500T80 PO (19:44)
[2020-10-08] MEDS ORDERED: LEVOFLOXACIN 500 MG TAB (LEVAQUIN) PO ONE (19:45)
[2020-10-08] MEDS ORDERED: TRIM/SULFAMETH 160/800 (SEPTRA DS) TAB PO ONE (19:45)
[2020-10-08] MEDS ORDERED: LEVOFLOXACIN 500 MG TAB (LEVAQUIN) ONE (19:46)
[2020-10-08 19:50] VITALS: BP 159/93
== END 2020-10-08 19:51 | disposition home or self-care (01) ==
LOC: EDUNIT# 16:24 → ER 16:25
DX: S81.011A Laceration without foreign body, right knee, initial encounter (principal); J45.909 Unspecified asthma, uncomplicated; G89.29 Other chronic pain; E11.40 Type 2 diabetes mellitus with diabetic neuropathy, unspecified; Z99.89 Dependence on other enabling machines and devices; Z88.1 Allergy status to other antibiotic agents; Z79.82 Long term (current) use of aspirin; Z79.51 Long term (current) use of inhaled steroids; Z96.652 Presence of left artificial knee joint; Z79.891 Long term (current) use of opiate analgesic; Z85.828 Personal history of other malignant neoplasm of skin; Z80.9 Family history of malignant neoplasm, unspecified; Z23 Encounter for immunization; W01.0XXA Fall on same level from slipping, tripping and stumbling without subsequent striking against object, initial encounter; Y92.009 Unspecified place in unspecified non-institutional (private) residence as the place of occurrence of the external cause
CPT/HCPCS: 73562; 90715

== ENCOUNTER → 2020-10-19 | Outpatient (CLI) | payer MEDICARE, OTHER ==
[~2020-10-19] MED LIST changes: +LEVO500T80 PO
== END ==
LOC: LABNPT 08:13
PROVIDERS: ATTEND Family Medicine
DX: U07.1 COVID-19 (principal)
CPT/HCPCS: 87635

== ENCOUNTER → 2020-10-21 | Outpatient (CLI) | payer MEDICARE, OTHER ==
[~2020-10-21] VITALS: Ht 160 cm; Wt 106.0 kg
[~2020-10-21] MED LIST changes: +BAMLANIVIMAB 700 MG in NS 200 ML IV ONE; +EPINEPHrine INJECTION 1 MG/ML AMP IM PRN; +diphenhydrAMINE 50 MG/ML INJ (BENADRYL) IV PRN
[2020-10-21 08:35] VITALS: BP 113/93
[2020-10-21 11:00] VITALS: BP 137/77
== END ==
LOC: INFUSION 08:25
PROVIDERS: ATTEND Family Medicine
DX: U07.1 COVID-19 (principal)

== ENCOUNTER → 2020-12-23 | Outpatient (CLI) | payer MEDICARE, OTHER ==
[~2020-12-23] MED LIST changes: -BAMLANIVIMAB 700 MG in NS 200 ML IV ONE; -EPINEPHrine INJECTION 1 MG/ML AMP IM PRN; +ESCI-2 PO; -ESCI10TA55 PO; -diphenhydrAMINE 50 MG/ML INJ (BENADRYL) IV PRN
--- NOTE | 2020-12-23 11:49 | Diagnostic Imaging Report ---
EXAM: Digital mammogram, bilateral screening This study was compared to the prior exams of 12/08/2019, 11/28/2018 and 10/31/2017. At this time, there are no current complaints. The thyroid glandular tissue in both breasts is heterogeneously dense. This does limit the sensitivity of this exam. In the interval since the prior study a 6 mm asymmetry has developed in the lateral retroareolar region of the left breast on the CC view. Just posterior to this, there is another smaller 5 mm asymmetry. These asymmetries are not as conspicuous on the MLO view although I suspect they are in the superior aspect of the breast. These asymmetries are also not as conspicuous on the tomographic images but they still seem to persist. I would recommend that a compression view of this area be obtained in the CC and MLO projections for further study. A true lateral view should be obtained as well. Ultrasound should also be performed. There is no primary or secondary sign of malignancy noted otherwise. IMPRESSION: 1. Additional mammographic views and ultrasound of the left breast would be recommended for further study. ACR category 0. ACR BI-RADS Category 0: Incomplete. (Needs additional imaging evaluation). Result letter will be mailed to the patient. Note: At least 10% of breast cancer is not imaged by mammography. Dictated by: Dictated on workstation # [id number]
== END ==
LOC: RAD 10:00
PROVIDERS: ATTEND Family Medicine
DX: Z12.31 Encounter for screening mammogram for malignant neoplasm of breast (principal)
CPT/HCPCS: 77063; 77067

== ENCOUNTER → 2020-12-30 | Outpatient (CLI) | payer MEDICARE ==
--- NOTE | 2020-12-30 18:04 | Diagnostic Imaging Report ---
INDICATION: Left breast density. COMPARISON: Correlation is made with diagnostic mammogram from earlier the same day and screening mammogram from 12/23/2020. EXAMINATION: Sonographic interrogation of the upper and outer retroareolar left breast was performed. FINDINGS: No sonographic abnormality is identified. No solid or cystic mass is detected. IMPRESSION: No sonographic abnormality is detected. Patient may return to routine annual screening mammography. ACR BI-RADS Category 1: Negative. Result letter will be mailed to the patient. Note: At least 10% of breast cancer is not imaged by mammography. Dictated by: Dictated on workstation # [id number]
--- NOTE | 2020-12-30 18:14 | Diagnostic Imaging Report ---
INDICATION: Left breast density. Patient presents for additional views. COMPARISON: Correlation is made with screening mammogram from 12/23/2020. EXAMINATION: Unilateral left 2D and 3D diagnostic mammography was performed. This includes spot compression CC and ML views as well as conventional 90 degree lateral views. 3D tomographic images were obtained and reviewed. The current study was also evaluated with a Computer Aided Detection (CAD) system. FINDINGS: Additional views fail to demonstrate a discrete mass. Particularly, no nodular densities in the retroareolar and slightly outer left breast are identified on additional views. No suspicious abnormality is detected. IMPRESSION: Additional views fail to demonstrate a discrete mass. Even so, sonographic interrogation of the retroareolar and slightly outer left breast is recommended and will be performed today. ACR BI-RADS Category 0: Incomplete. (Needs additional imaging evaluation). Result letter will be mailed to the patient. Note: At least 10% of breast cancer is not imaged by mammography. Dictated by: Dictated on workstation # [id number]
== END ==
LOC: RAD 13:15
PROVIDERS: ATTEND Nurse Practitioner Family
DX: R92.2 Inconclusive mammogram (principal)
CPT/HCPCS: 76642; 77065; G0279

== ENCOUNTER → 2021-01-09 | Outpatient (CLI) | payer MEDICARE, OTHER | LOC: CARD 14:30 | PROVIDERS: ATTEND Internal Medicine Cardiovascular Disease | DX: I11.9 Hypertensive heart disease without heart failure (principal); I35.1 Nonrheumatic aortic (valve) insufficiency | CPT/HCPCS: 93306 ==

== ENCOUNTER → 2021-01-11 | Outpatient (CLI) | payer MEDICARE, OTHER ==
[~2021-01-11] VITALS: Ht 157 cm; Wt 109.0 kg
[~2021-01-11] MED LIST changes: +REGADENOSON 0.4 MG/5 ML SYR (LEXISCAN) IV ONE
[2021-01-11] MEDS: CATHETER FLUSH 10 ML SYR IV PRN ×2 (07:30→09:00)
[2021-01-11 08:57] VITALS: BP 142/83
--- NOTE | 2021-01-11 15:14 | Cardiology Stress Test Report ---
Stress Test Report Date of Procedure/Referring: Date of Procedure: Jan 11, 2021 PCP Demarcus Ricks MD Admitting Physician Amaris Vaz MD Indications: Hypertension Baseline Heart Rate: 58 Baseline Blood Pressure: Blood Pressure Systolic: 142 Blood Pressure Diastolic: 83 Baseline Vitals Vital Signs Date Time Temp Pulse Resp B/P (MAP) Pulse Ox O2 Delivery O2 Flow Rate FiO2 01/11/21 08:57 54 16 142/83 (102) 98 Room Air Baseline EKG: Baseline EKG: NSR Summary After explaining the procedure to the patient, she signed a consent and then brought to the stress nuclear laboratory. Patient received 0.4 mg Lexiscan for stress test, ECG, heart rate and blood pressure were monitored continuously. Resting and stress dose of radio tracer were injected, imaging was acquired and reviewed in short axis, horizontal long axis and vertical long axis views. TID: 1.11 SSS: 4 SDS: 3 EF: 70 1. Patient tolerated Lexiscan well 2. Breast attenuation with mild decrease uptake at the basal to mid anterior wall with subtle reversibility, no significant ischemia or infarction SPECT images 3. Normal left ventricular size, EF 70 percent DEMARCUS RICKS MD Jan 11, 2021 15:14
== END ==
LOC: CARD 07:30
PROVIDERS: ATTEND Internal Medicine Cardiovascular Disease
DX: I10 Essential (primary) hypertension (principal); R07.9 Chest pain, unspecified
CPT/HCPCS: 78452; 93017; A9502

== ENCOUNTER → 2021-03-08 | Outpatient (CLI) | payer MEDICARE, OTHER ==
[~2021-03-08] MED LIST changes: -REGADENOSON 0.4 MG/5 ML SYR (LEXISCAN) IV ONE
--- NOTE | 2021-03-08 14:08 | Diagnostic Imaging Report ---
INDICATION: Fall. Ankle swelling. Pain. History of foot drop. COMPARISON: 10/10/2019. FINDINGS: Three radiographic views of the left ankle were obtained. There is chronic deformity involving the medial malleolus. No acute fracture or dislocation is seen. The joint spaces are intact. No unexpected radiopaque foreign bodies are identified. Moderate soft tissue swelling is also noted. IMPRESSION: Chronic appearing deformity of the medial malleolus. No evidence of new acute fracture or dislocation of the left ankle. Dictated by: Dictated on workstation # [id number]
== END ==
LOC: RAD 11:42
PROVIDERS: ATTEND Nurse Practitioner Family
DX: M25.472 Effusion, left ankle (principal); Z87.39 Personal history of other diseases of the musculoskeletal system and connective tissue
CPT/HCPCS: 73610

== ENCOUNTER → 2021-03-21 | Outpatient (CLI) | payer MEDICARE, OTHER ==
--- NOTE | 2021-03-21 10:06 | Diagnostic Imaging Report ---
PROCEDURE: MRI left joint lower extremity without contrast. TECHNIQUE: Multiplanar, multisequence noncontrast-enhanced MRI of the left lower extremity was accomplished. INDICATION: Heel pain. COMPARISON: There are no prior MRI examinations available for comparison. FINDINGS: The plain film examination of the left ankle performed on 03/08/2021 noted a chronic-appearing deformity of the medial malleolus of the distal tibia but failed to show any sign of an acute bony abnormality. I reviewed the previous exam and agree with the interpretation of that study. However, on the STIR sagittal series of this exam, there is diffusely increased signal throughout the posterior superior aspect of the calcaneus. In addition, there is an irregular linear area of diminished signal extending through the posterior superior cortex of the calcaneus in this area. I suspect that this is related to a nondisplaced stress fracture. The abnormal signal about the stress fracture would be consistent with bone edema. The coronal proton dense fat saturated series also shows increased signal along the zoila-lateral aspect of the talus. This too may be related to bone edema from a recent injury. The talar dome, however, is smooth and there is no sign of osteochondritis dissecans. There is also a small area of bone edema along the anterolateral aspect of the cuboid bone. There is no other abnormal signal arising from the osseous structures to indicate bone edema or a fracture. The Achilles tendon is unremarkable. The plantar fascia also seems undisturbed. The other major ligaments and tendons about the ankle joint seem intact. There is a small ankle joint effusion present. There is also some fluid in the bursa along the superior margin of the calcaneus. This does suggest that there is an element of bursitis present as well. IMPRESSION: 1. There is a nondisplaced fracture line extending through the posterior superior cortex of the calcaneus with associated diffuse bone edema. This may well be related to a stress type injury. 2. There are also much smaller areas of bone edema involving the talus and to a lesser extent the cuboid bone. These may be post traumatic as well. 3. The Achilles tendon is intact. The other major ligaments and tendons show no sign of an acute injury. 4. There is a small joint effusion. The fluid in the bursa superior to the calcaneus does suggest that there is an element of bursitis present as well. Dictated by: Dictated on workstation # [id number]
== END ==
LOC: RAD 08:36
PROVIDERS: ATTEND Nurse Practitioner Family
DX: S92.015A Nondisplaced fracture of body of left calcaneus, initial encounter for closed fracture (principal)
CPT/HCPCS: 73721

== ENCOUNTER → 2021-10-27 | Outpatient (CLI) | payer MEDICARE, OTHER ==
[~2021-10-27] MED LIST changes: +GADOTERATE 0.5 MMOL/ML (CLARISCAN) 20 ML VIAL IV ONE; -LEVO500T80 PO; +LEVO500T81 PO
--- NOTE | 2021-10-27 12:10 | Diagnostic Imaging Report ---
PROCEDURE: MRI lumbar spine with and without contrast. TECHNIQUE: Multiplanar, multisequence MRI of the lumbar spine was performed with and without contrast. INDICATION: Increased leg weakness. Back pain. COMPARISON: 01/06/2015. FINDINGS: 5 lumbar type vertebral bodies are visualized with the last well-formed disc space designated L5-S1. No acute fracture or dislocation is seen in the lumbar spine. Chronic appearing height loss is seen in the superior endplate of the L1 vertebral body. There is right convexity curvature of the thoracolumbar spine. Posterior fusion changes are visualized from L2 to S1 and involving the right SI joint. No focal osseous lesions are seen. No abnormal enhancement is visualized. The conus terminates at the L1 level. No masses are seen associated with the conus or nerve roots of the cauda equina. No epidural collections are identified. Multilevel degenerative changes are seen in the lumbar spine with disc bulges, facet hypertrophy, and buckling of the ligamentum flavum. T12-L1: Facet hypertrophy and buckling of ligamentum flavum results in no significant spinal canal narrowing and moderate bilateral foraminal stenosis. L1-L2: Facet hypertrophy and buckling of ligamenta flava results in no significant spinal canal narrowing and drdt-ov-gkjypmve bilateral foraminal narrowing. L2-L3: No significant spinal canal or foraminal stenosis. L3-L4: Facet hypertrophy and buckling of ligamentum flavum results in mdoa-ym-ggxcqoaj spinal canal narrowing and rzgn-nm-nlhrkmba right and moderate left foraminal stenosis. L4-L5: Facet hypertrophy and buckling of the ligamentum flavum results in no significant spinal canal narrowing. The foraminal stenosis is not visualized due to artifact from the metallic hardware. L5-S1: Facet hypertrophy and buckling of ligamentum flavum results in no significant spinal canal narrowing. Foraminal stenosis is not evaluated due to artifact from the metallic hardware. Paravertebral soft tissues are unremarkable. IMPRESSION: 1. No acute fracture or dislocation in the lumbar spine. No abnormal enhancement. 2. Chronic high loss in the superior endplate of L1. 3. Postsurgical changes of posterior fusion from L2 to S1. 4. Degenerative changes in the lumbar spine, most prominent at the L3-L4 level. Please note the degree of foraminal stenosis was not evaluated at the L4-L5 and L5-S1 levels due to streak artifact from the metallic hardware. If indicated CT of the lumbar spine may be considered to further evaluate. Dictated by: Dictated on workstation # [id number]
== END ==
LOC: RAD 10:15
PROVIDERS: ATTEND Nurse Practitioner Family
DX: M47.816 Spondylosis without myelopathy or radiculopathy, lumbar region (principal); M48.061 Spinal stenosis, lumbar region without neurogenic claudication; M48.07 Spinal stenosis, lumbosacral region; Z98.1 Arthrodesis status
CPT/HCPCS: 72158

== ENCOUNTER → 2021-11-14 | Outpatient (CLI) | payer MEDICARE, OTHER ==
[~2021-11-14] MED LIST changes: -GADOTERATE 0.5 MMOL/ML (CLARISCAN) 20 ML VIAL IV ONE; -MMT17NA; +MOME17SP4
--- NOTE | 2021-11-14 14:30 | Diagnostic Imaging Report ---
INDICATION: Postmenopausal COMPARISON: None FINDINGS: The bone mineral density of the hips and femoral necks was measured. By history the patient has had a prior fusion of the lumbar spine. The total T score for the left hip and from both femoral necks is -1.3. This finding indicates mild osteopenia. The total T score for the right hip is -0.8. This value is within normal limits. AP Spine L1-L4: [BMD (g/cm2): NA] [T-Score: NA] [Z-Score: NA] [BMD Previous: NA] [BMD % Change: NA] LT Hip Neck: [BMD (g/cm2): 0.854] [T-Score: -1.3] [Z-Score: -0.5] LT Hip Total: [BMD (g/cm2):0.846] [T-Score:-1.3] [Z-Score: -0.8] [BMD Previous: NA] [BMD % Change: NA] RT Hip Neck: [BMD (g/cm2):0.863] [T-Score:-1.3] [Z-Score:-0.4] RT Hip Total: [BMD (g/cm2):0.911] [T-score:-0.8] [Z-Score:-0.] [BMD Previous:NA] [BMD % Change:NA] *Indicates significant change from prior examination based on 95% confidence level. World Health Organization criteria for BMD interpretation classify patients as Normal (T-score at or above -1.0), Osteopenic (T-score between -1.0 and -2.5) or Osteoporotic (T-score at or below -2.5). LIMITATIONS AND MODIFICATION: None. FRACTURE RISK (FRAX SCORE): The ten year probability of (%): Major Osteoporotic Fracture: [12.6] Hip Fracture: [1.2] IMPRESSION: 1. The bone mineral density right hip is within normal limits but there is mild osteopenia of the left hip and both femoral necks. 2. The bone mineral density of the spine could not be obtained due to prior back surgery. 3. See below National Osteoporosis Foundation guidelines on when to potentially initiate pharmacologic therapy. Based on the National Osteoporosis Foundation Guidelines, pharmacologic treatment should be initiated in any of the following, unless clinical conditions suggest otherwise: * Any patient with prior fragility fracture of the hip or vertebrae. A spine fracture indicates 5X risk for subsequent spine fracture and 2X risk for subsequent hip fracture. * Osteoporosis (T-score <-2.5). * Postmenopausal women and men age 50 and older with low bone mass/osteopenia (T-score between -1.0 and -2.5) by DXA and 10-year major osteoporotic fracture greater than 20% or a 10-year probability of hip fracture greater than 3%. These fracture risks are supplied above in the FRAX score, if applicable. * Clinician judgement and/or patient preferences may indicate treatment for people with 10-year fracture probabilities above or below these levels. Dictated by: Dictated on workstation # [id number]
== END ==
LOC: RAD 11:30
PROVIDERS: ATTEND Nurse Practitioner Family
DX: M85.80 Other specified disorders of bone density and structure, unspecified site (principal); Z78.0 Asymptomatic menopausal state
CPT/HCPCS: 77080

== ENCOUNTER → 2021-11-17 | Outpatient (CLI) | payer MEDICARE, OTHER ==
--- NOTE | 2021-11-17 14:02 | Diagnostic Imaging Report ---
PROCEDURE: CT lumbar spine without contrast. TECHNIQUE: Multiple contiguous axial images were obtained through the lumbar spine without the use of intravenous contrast. Sagittal and coronal reformations were then performed. Auto Exposure Controls were utilized during the CT exam to meet ALARA standards for radiation dose reduction. INDICATION: Low back pain. Lumbar spine fusion. COMPARISON: MRI lumbar spine without and with IV contrast 10/27/2021. FINDINGS: Examination is markedly limited by streak artifact from extensive hardware. Advanced right apex lumbar curvature. No compression fractures are identified. Advanced degenerative endplate changes at T12-L2. Posterior instrumentation at L2-L5 bilaterally. This extends to the ileum in the right. Mature interbody fusions at L3-S1. L2-L3 fusion of vertebral bodies without a device seen. No fractures are identified. L4-L5 laminectomies. Probable high-grade neural foraminal narrowing on the left at L2-L3, on the right at L3-L4 and bilaterally L4-L5. Visualized pelvis appears intact. No acute findings in the visualized paravertebral soft tissues. IMPRESSION: 1. Examination limited by streak artifact from extensive hardware detailed above. 2. Scattered high-grade osseous neural foraminal narrowing as above. 3. Advanced degenerative endplate changes at T12-L2. 4. No acute osseous findings are identified. Dictated by: Dictated on workstation # [id number]
== END ==
LOC: RAD 12:45
PROVIDERS: ATTEND Family Medicine
DX: M48.061 Spinal stenosis, lumbar region without neurogenic claudication (principal); M47.815 Spondylosis without myelopathy or radiculopathy, thoracolumbar region
CPT/HCPCS: 72131

== ENCOUNTER → 2021-12-25 | Outpatient (CLI) | payer MEDICARE, OTHER | LOC: RAD 10:15 | PROVIDERS: ATTEND Nurse Practitioner Family | DX: Z12.31 Encounter for screening mammogram for malignant neoplasm of breast (principal); G62.9 Polyneuropathy, unspecified; Z78.0 Asymptomatic menopausal state; Z87.39 Personal history of other diseases of the musculoskeletal system and connective tissue | CPT/HCPCS: 77063; 77067 ==

== ENCOUNTER 2022-04-22 09:53 | Emergency (ER) | payer MEDICARE, OTHER ==
[~2022-04-22] VITALS: Ht 160 cm; Wt 112.0 kg
[2022-04-22 10:36] VITALS: BP 143/76
--- NOTE | 2022-04-22 10:58 | ED Fall/Injury ---
General Chief Complaint: Trauma-Non Activation Stated Complaint: FALL - R ELBOW LAC - L BIG TOE PAIN Source: patient Exam Limitations: no limitations History of Present Illness Date Seen by Provider: Apr 22, 2022 Time Seen by Provider: 10:40 Initial Comments Patient to the ER by private conveyance chief complaint just prior to arrival she tripped on her left foot and fell forward landing on her right elbow. She has a small laceration over her elbow that she thinks might need stitches. She had a tetanus vaccine in the last 5 years. She has an abrasion over the top of her left great toe and the proximal MCP of the first digit of the left foot has pain and swelling. She has some neuropathy and left foot drop and is supposed to be wearing an orthotic related to lumbar radiculopathy. She follows with Dr. Cobos. She is not having any pain elsewhere. She did not strike her head. She is not on blood thinners Allergies and Home Medications Allergies Coded Allergies: Cephalosporins (Verified Allergy, Intermediate, HIVES, 09/11/15) HIVES AND RASH- PER PATIENT Patient Home Medication List Home Medication List Reviewed: Yes Albuterol (Proair Hfa) 8.5 Gm Hfa.aer.ad, 2 PUFF IH Q6H PRN for WHEEZING, (Reported) Entered as Reported by: AUGUSTINE PATTERSON on 02/26/14 1419 Amoxicillin (Amoxicillin) 500 Mg Capsule, 500 MG PO BID Prescribed by: TREASURE FUENTES on 04/22/22 1142 Aspirin (Aspirin Ec 81 Mg) 81 Mg Tabec, 81 MG PO HS, (Reported) Entered as Reported by: TERA THORNTON on 10/10/12 1427 Calcium Carbonate/Vitamin D3 (Calcium + Vitamin D Tablet) 1 Each Tablet, 1 EACH PO BID, (Reported) Entered as Reported by: TERA THORNTON on 03/17/15 1010 Diltiazem HCl (Cardizem Cd) 180 Mg Cap.er.24h, 180 MG PO BID Prescribed by: SHERWIN MAGAÑA on 09/11/15 1537 Docusate Sodium (Docusate Sodium) 100 Mg Capsule, 100 MG PO BID Prescribed by: SHERWIN MAGAÑA on 09/11/15 1511 Escitalopram Oxalate (Escitalopram Oxalate) 10 Mg Tablet, 10 MG PO HS Prescribed by: SHERWIN MAGAÑA on 09/11/15 1511 Fentanyl (Fentanyl Patch 50 MCG) 1 Each Patch.td72, 50 MCG TD Q72H Prescribed by: KAE AGUILAR on 09/26/152038 Fluticasone/Salmeterol (Advair 115/21 Mcg Common Canister) 1 Puff Puff, 1 PUFF IH BID, (Reported) Entered as Reported by: JEAN CLAUDE QUESADA on 04/19/14 165 Folic Acid (Folic Acid) 0.8 Mg Capsule, 0.8 MG PO DAILY Prescribed by: SHERWIN MAGAÑA on 09/11/15 151 Gabapentin (Gabapentin) 600 Mg Tablet, 1,200 MG PO BID Prescribed by: SHERWIN MAGAÑA on 09/11/15 151 Levofloxacin (Levofloxacin) 500 Mg Tablet, 500 MG PO DAILY Prescribed by: LILIA ACEVEDO on 10/08/20 194 Magnesium Oxide (Mag Ox 400) 400 Mg Tablet, 400 MG PO TID, (Reported) Entered as Reported by: AUGUSTINE PATTERSON on 03/16/14 1535 Mometasone Furoate (Nasonex) 17 Gm Naspr, 2 SPRAYS NA DAILY, (Reported) Entered as Reported by: ASHLEY CACERES on 09/16/15 1518 Montelukast Sodium (Singulair) 10 Mg Tablet, 10 MG PO HS, (Reported) Entered as Reported by: TERA THORNTON on 03/17/15 1010 Mu-Vits-Min Th/Lycopene/Lutein (Centrum Silver Tablet) 1 Each Tablet, 1 TAB PO DAILY, (Reported) Entered as Reported by: TERA THORNTON on 10/10/12 1427 Omeprazole (Omeprazole) 10 Mg Capsule.dr, 10 MG PO DAILY, (Reported) Entered as Reported by: ASHLEY CACERES on 09/16/15 1518 Oxycodone HCl (Roxicodone) 5 Mg Tablet, 5-15 MG PO Q3H PRN for PAIN Prescribed by: ASHLEY CACERES on 09/16/15 1518 Potassium Chloride (Potassium Chloride) 20 Meq Tab.prt.sr, 20 MEQ PO DAILY, (Reported) Entered as Reported by: AUGUSTINE PATTERSON on 11/23/13 1227 Thiamine HCl (Thiamine HCl) 100 Mg Tablet, 200 MG PO DAILY, (Reported) Entered as Reported by: ASHLEY CACERES on 09/16/15 1529 Tizanidine Hcl (Tizanadine Hcl) 4 Mg Tablet, 4 MG PO Q8H PRN for MUSCLE SPASMS, (Reported) Entered as Reported by: AUGUSTINE PATTERSON on 02/26/14 1426 Triamterene/Hydrochlorothiazid (Triamterene-Hctz 37.5-25 mg Tb) 1 Each Tablet, 0.5 EACH PO DAILY Prescribed by: SHERWIN MAGAÑA on 09/11/15 1511 [Oxycodone Hcl] 10 MG TAB, 10 MG PO BID Prescribed by: KAE AGUILAR on 09/26/152038 Review of Systems Review of Systems Constitutional: No chills, No fever, No malaise Eyes: Denies Blindness, Denies Blurred Vision Ears, Nose, Mouth, Throat: denies ear pain Respiratory: No cough, No phlegm Cardiovascular: No chest pain, No edema Gastrointestinal: No abdominal pain, No nausea Genitourinary: No discharge, No dysuria Musculoskeletal: No back pain; joint pain All Other Systems Reviewed Negative Unless Noted: Yes Past Zxdbsvr-Gektvg-Djzwvf Hx Patient Social History Tobacco Use?: No Use of E-Cig and/or Vaping dev: No Immunizations Up To Date Tetanus Booster (TDap): More than 5yrs PED Vaccines UTD: Yes Past Medical History Surgeries: Yes (CARPAL TUNNEL RELEASE ON LEFT, BUNIONECTOMY, LAP-BAND 13', L TOTAL KNEE, ) Orthopedic Respiratory: Yes (REACTIVE AIRWAY DISEASE) Asthma, Chronic Bronchitis Currently Using CPAP: Yes Currently Using BIPAP: No Cardiac: Yes Neurological: Yes (left foot drop) Neuropathy Reproductive Disorders: No Female Reproductive Disorders: Denies Sexually Transmitted Disease: No HIV/AIDS: No Genitourinary: Yes Benign Prostatic Hyperpl Gastrointestinal: Yes (LAP BAND PROCEDURE, REMOVAL) Gall Bladder Disease Musculoskeletal: Yes (STENOSIS L3,4,5, LEFT FOOT DROP , SPINE SURGERY, FUSION) Arthritis, Foot Drop, Chronic Back Pain, Spasms Endocrine: Yes Diabetes, Non-Insulin dep HEENT: No Loss of Vision: Denies Hearing Impairment: Denies Cancer: Yes (BASAL AND SQUAMOS REMOVED) Skin Psychosocial: No Integumentary: No Blood Disorders: No Adverse Reaction/Blood Tranf: No Family Medical History Cancer 03 FATHER 03 MOTHER Family history: Diabetes mellitus 09 BROTHER 09 SISTER Physical Exam Vital Signs Vital Signs - First Documented 04/22/22 10:36 Temp 36.4 Pulse 62 Resp 22 B/P (MAP) 143/76 (98) Pulse Ox 94 Capillary Refill : Height, Weight, BMI Height: 5'2.00" Weight: 247lbs. 0.0oz. 112.588745qt; 44.22 BMI Method:Stated General Appearance: WD/WN, no apparent distress HEENT: PERRL/EOMI, pharynx normal Neck: full range of motion, supple, normal inspection Cardiovascular: normal peripheral pulses, regular rate, rhythm Respiratory: no respiratory distress, no accessory muscle use Neurologic/Psychiatric: alert, normal mood/affect, oriented x 3 Skin: normal color, warm/dry, other (1 cm linear laceration over the prominence of the right elbow. Superficial abrasion over the dorsum of the left first toe) Valentines Coma Score Best Eye Response: (4) Open Spontaneously Best Verbal Response: (5) Oriented Best Motor Response: (6) Obeys Commands Fei Total: 15 Procedures/Interventions Wound Location: Upper Extremities Other Wound Location Right elbow Wound Length (cm): 1.5 Wound's Depth, Shape: linear, sub Q Wound Explored: clean Irrigated w/ Saline (ccs): 150 Betadine Prep?: Yes (Chlorhexidine) Anesthesia: 1% Lidocaine Volume Anesthetic (ccs): 1 Wound Debrided: minimal Suture: Ethlion Suture Size: 4-0 Number of Sutures: 2 Layer Closure?: 1 Number Deep Layer Sutures: 0 Sterile Dressing Applied?: Yes Progress/Results/Core Measures Results/Orders My Orders Orders - TREASURE FUENTES Foot, Left, 3 Views (04/22/22 10:50) Lidocaine 1% Inj 20 Ml (Xylocaine 1% Inj (04/22/22 11:00) Vital Signs/I&O 04/22/22 10:36 Temp 36.4 Pulse 62 Resp 22 B/P (MAP) 143/76 (98) Pulse Ox 94 Progress Progress Note : Time: 10:57 Progress Note Patient states she is been able to tolerate amoxicillin or penicillin in the past. To put her on some antibiotics, clean the wound with chlorhexidine, flush it with saline and stitched closed on her elbow. Plain film of her left foot. We discussed imaging of her right elbow and the patient feels she has full range of motion and no problems and does not desire imaging at this time. Diagnostic Imaging Diagonstic Imaging: Xray Plain Films/CT/US/NM/MRI: other (Left foot) Comments [facility], [place] NAME: ANGELICA VALENCIA [facility] REC#: [id number] PT STATUS: REG ER : 1955 PHYSICIAN: TREASURE FUENTES MD ADMIT DATE: 04/22/22/ER Draft Date of Exam:04/22/22 FOOT, LEFT, 3 VIEWS EXAMINATION: Left foot radiographs, 3 views. COMPARISON: Left foot radiographs April 07, 2020. HISTORY: 66-year-old female, fall. Left foot pain. FINDINGS: The bones appear potentially demineralized. There is metallic wire material at the level of the first proximal phalanx and fixation pin at the level of the first metatarsal. There is uncovering of the lateral sesamoid. There are well-corticated areas of ossification adjacent to the medial and lateral malleoli compatible with a chronic long-standing etiology most likely reflecting sequela of remote prior injury. There are likely postoperative related changes of the distal aspect of the fifth proximal phalanx. There is prominent degenerative type enthesopathy in the region of the Achilles tendon insertion. There is a calcaneal heel spur. There is no identified acute fracture. There is no cortical or aggressive bone destruction. IMPRESSION: 1. No identified acute bony abnormality of the left foot. 2. Chronic findings, as discussed above. Dictated on workstation # [id number] Dict: 04/22/22 1111 Trans: 04/22/22 1125 [facility] [id number] Interpreted by: BALBINA TERRELL MD Electronically signed by: Reviewed: Reviewed by Me Departure Impression Primary Impression: Fall Qualified Codes: W19.XXXA - Unspecified fall, initial encounter Additional Impressions: Contusion of left foot including toes Qualified Codes: S90.32XA - Contusion of left foot, initial encounter; S90.122A - Contusion of left lesser toe(s) without damage to nail, initial encounter Laceration of elbow, right Qualified Codes: S51.011A - Laceration without foreign body of right elbow, initial encounter Disposition: HOME, SELF-CARE Condition: Stable Departure-Patient Inst. Decision time for Depature: 11:40 Referrals: JEAN PIERRE POND MD (PCP/Family) Primary Care Physician Patient Instructions: Laceration Repair With Stitches (DC), Toe Injury Add. Discharge Instructions: Ice to the foot 20 minutes on every 2 hours while awake for the first 2 days as necessary for swelling and pain. Tylenol and Motrin as necessary for pain. You may use topical creams such as icy hot or Biofreeze but do not put it over open wounds. Keep your right elbow clean with regular soap and water at least once a day. Change the dressing daily. Change the dressing more often if it becomes soiled. Triple antibiotic ointment and a Band-Aid or gauze or reasonable dressings. Remove the sutures in 10 to 14 days by returning to this ER or your primary care doctor. Amoxicillin 500 mg twice a day to prevent infection for 5 days. Follow-up sooner if you are having increasing redness, swelling traveling away from the wound, fever, intractable vomiting or other worrisome symptoms. All discharge instructions reviewed with patient and/or family. Voiced understanding. Scripts Amoxicillin (Amoxicillin) 500 Mg Capsule 500 MG PO BID for 5 Days, #10 CAP 0 Refills Prov: TREASURE FUENTES 04/22/22 TREASURE FUENTES Apr 22, 2022 10:58
[2022-04-22] MEDS ORDERED: LIDOCAINE 1% INJ 20 ML VIAL INJ ONE (11:00)
--- NOTE | 2022-04-22 11:26 | Diagnostic Imaging Report ---
EXAMINATION: Left foot radiographs, 3 views. COMPARISON: Left foot radiographs April 07, 2020. HISTORY: 66-year-old female, fall. Left foot pain. FINDINGS: The bones appear potentially demineralized. There is metallic wire material at the level of the first proximal phalanx and fixation pin at the level of the first metatarsal. There is uncovering of the lateral sesamoid. There are well-corticated areas of ossification adjacent to the medial and lateral malleoli compatible with a chronic long-standing etiology most likely reflecting sequela of remote prior injury. There are likely postoperative related changes of the distal aspect of the fifth proximal phalanx. There is prominent degenerative type enthesopathy in the region of the Achilles tendon insertion. There is a calcaneal heel spur. There is no identified acute fracture. There is no cortical or aggressive bone destruction. IMPRESSION: 1. No identified acute bony abnormality of the left foot. 2. Chronic findings, as discussed above. Dictated by: Dictated on workstation # [id number]
[2022-04-22] MEDS ORDERED: AMOX500C2 PO ×2 (11:42→11:52)
== END 2022-04-22 11:54 | disposition home or self-care (01) ==
LOC: EDUNIT# 09:53 → ER 09:55
DX: S51.011A Laceration without foreign body of right elbow, initial encounter (principal); S90.112A Contusion of left great toe without damage to nail, initial encounter; W01.0XXA Fall on same level from slipping, tripping and stumbling without subsequent striking against object, initial encounter
CPT/HCPCS: 12001; 73630

== ENCOUNTER → 2022-08-24 | Outpatient (CLI) | payer MEDICARE, OTHER ==
[~2022-08-24] MED LIST changes: +AMOX500C2 PO; +LEVO-55 PO; -LEVO500T81 PO
--- NOTE | 2022-08-24 13:13 | Diagnostic Imaging Report ---
PROCEDURE: US Thyroid. TECHNIQUE: Multiple real-time grayscale images were obtained of the thyroid in various projections. INDICATION: Follow-up thyroid nodule. COMPARISON: 06/21/2020. FINDINGS: Right thyroid lobe: The right thyroid lobe measures 3.8 x 1.5 x 1.8 cm. Normal vascularity is present within the right thyroid lobe. There is a stable isoechoic, wider than tall solid nodule with no echogenic foci measuring 1.9 cm in maximal diameter (TI-RADS 3). Isthmus: The thyroid isthmus measures 0.3 cm and is without nodules. Left thyroid lobe: The left thyroid lobe measures 3.1 x 1.3 x 1.5 cm. Normal vascularity is present within the left thyroid lobe. There is a stable isoechoic, solid nodule that is wider than tall and has no echogenic foci measuring up to 1.1 cm (TI-RADS 3). IMPRESSION: No change in bilateral thyroid nodules, each of which are TI-RADS 3. These have been stable since 2018. A follow-up in one year would confirm the below guidelines for documenting five-year stability. ACR TI-RADS: TR3 . TI-RADS Recommendations:TR3 - Mildly Suspicious. FNA if > 2.5 cm. Follow if > 1.5 cm at 1, 3, 5 years. Dictated by: Dictated on workstation # [id number]
== END ==
LOC: RAD 07:50
PROVIDERS: ATTEND Otolaryngology Otolaryngology/Facial Plastic Surgery
DX: E04.2 Nontoxic multinodular goiter (principal)
CPT/HCPCS: 76536

== ENCOUNTER → 2022-09-26 | Outpatient (CLI) | payer MEDICARE, OTHER | LOC: CARD 09:36 | PROVIDERS: ATTEND Physician Assistant | DX: I08.2 Rheumatic disorders of both aortic and tricuspid valves (principal); I11.9 Hypertensive heart disease without heart failure; I71.9 Aortic aneurysm of unspecified site, without rupture | CPT/HCPCS: 93306 ==

== ENCOUNTER → 2022-12-27 | Outpatient (CLI) | payer MEDICARE, OTHER ==
--- NOTE | 2022-12-28 09:12 | Diagnostic Imaging Report ---
3-D bilateral screening mammogram with CAD. COMPARISON: This study was compared to the prior exams of 12/25/2021, 12/23/2020 and 12/08/2019. There are no current complaints. TECHNIQUE: 3-D bilateral screening mammogram The current study was also evaluated with a Computer Aided Detection (CAD) system. FINDINGS: The fibroglandular tissue in both breasts is heterogeneously dense. This does limit the sensitivity of this exam. Overall, there does not appear to have been any significant change when compared to the prior study. No primary or secondary sign of malignancy is noted. IMPRESSION: There is no radiographic evidence for malignancy. BI-RADS ACR CATEGORY: 1. NEGATIVE. ACR BI-RADS Category 1: Negative. Result letter will be mailed to the patient. Note: At least 10% of breast cancer is not imaged by mammography. Dictated by: Dictated on workstation # [id number]
== END ==
LOC: RAD 11:00
PROVIDERS: ATTEND Family Medicine
DX: Z12.31 Encounter for screening mammogram for malignant neoplasm of breast (principal)
CPT/HCPCS: 77063; 77067

== ENCOUNTER 2023-01-09 05:36 | Outpatient (CLI) | payer MEDICARE, OTHER ==
[~2023-01-09] VITALS: Ht 157.5 cm; Wt 109.1 kg
[2023-01-14] MEDS ORDERED: LISI20TA26 PO (13:15)
[2023-01-14] MEDS ORDERED: ESCI20TA39 PO (13:15)
[2023-01-14] MEDS ORDERED: DICL75TA2 PO (13:15)
[2023-01-14] MEDS ORDERED: POTA-51 PO (13:15)
[2023-01-14] MEDS ORDERED: CALC-852 PO (13:15)
[2023-01-14] MEDS ORDERED: PANT40TA52 PO (13:15)
[2023-01-14] MEDS ORDERED: MULT1CAP54 PO (13:15)
[2023-01-14] MEDS ORDERED: ASPI-999 PO (13:15)
[2023-01-14] MEDS ORDERED: TRIA1CAP84 PO (13:17)
[2023-01-14] MEDS ORDERED: GBPN600T PO ×2 (13:17)
[2023-01-14] MEDS ORDERED: BIOT10005 PO (13:17)
[2023-01-14] MEDS ORDERED: CALC-250 PO (13:17)
== END 2023-01-14 13:21 | disposition home or self-care (01) ==
LOC: PREOP 05:36
PROVIDERS: ATTEND Surgery
DX: Z01.818 Encounter for other preprocedural examination (principal)

== ENCOUNTER 2023-01-16 09:44 | Day surgery (SDC) | payer MEDICARE, OTHER ==
--- NOTE | 2023-01-08 06:37 | HISTORY AND PHYSICAL ---
DATE OF SERVICE: 01/16/2023 HISTORY OF PRESENT ILLNESS: The patient is a 67-year-old female known to us. She has a history of multiple medical problems. She previously had a laparoscopic adjustable gastric band; however, this eroded into the stomach and had to be removed. She also has had a longstanding history of degenerative joint disease requiring open reduction and internal fixation of the lumbar vertebrae and this became infected and had to be removed. She was also septic for an extended period of time. At this time, she is doing well and is ambulating with a walker. She is in need of a screening colonoscopy. Her last colonoscopy was greater than 10 years ago. She states that she does have some intermittent issues with constipation. She does not report any red blood per rectum, nor any dark tarry stools. She also does have a family history of colon cancer with her mother having the disease. PAST MEDICAL HISTORY: Degenerative joint disease, lumbar vertebrae, hips and knees. Asthma, depression, hypertension, spinal stenosis, hyperlipidemia, morbid obesity, glucose intolerance, bilateral lower extremity edema. PAST SURGICAL HISTORY: Left total knee arthroplasty x2 in 2010 and 2018. Laparoscopic cholecystectomy in 1988. Total vaginal hysterectomy in 1990. Bilateral rotator cuff repair in 2006. Left tarsal tendon release in 2007. Left bunionectomy in 2008. Laparoscopic adjustable gastric band and removal in 2012 and 2014. Incision and drainage of epidural space, right total knee arthroplasty in 2018, bilateral carpal tunnel release. ALLERGIES: CEPHALOSPORINS. MEDICATIONS: Aspirin 81 mg daily, diclofenac 75 mg daily, triamterene/hydrochlorothiazide 37.5/25 mg daily, gabapentin 600 mg t.i.d., lisinopril 20 mg daily, misoprostol 200 mcg daily, escitalopram 20 mg daily, potassium 20 mEq daily. SOCIAL HISTORY: Negative smoke, negative alcohol. FAMILY HISTORY: Father, coronary artery disease. Mother, coronary artery disease, colon cancer. VITAL SIGNS: Stable. Blood pressure 130/80, current weight 240 pounds at 5 feet 2 inches and a body mass index of 43.8. REVIEW OF SYSTEMS: Well-nourished female, currently in no acute distress. She is not experiencing any shortness of breath or difficulty breathing. No chest pain, palpitations or diaphoresis. No nausea or vomiting. Intermittent episodes of constipation. No red blood per rectum, no dark tarry stools. No fever or chills, no recent inadvertent weight loss. All other review of systems negative. PHYSICAL EXAMINATION: CHEST: Clear. Good breath sounds bilaterally. HEART: Regular. No murmurs. EXTREMITIES: No lower extremity edema. Negative Homans sign. HEENT: No scleral icterus. No cervical lymphadenopathy. ABDOMEN: Soft, nontender, nondistended. SKIN: Warm, dry. ASSESSMENT AND PLAN: A 66-year-old female in need of a screening colonoscopy with a family history of colon cancer. It has been approximately 10 years since her last colonoscopy and we will schedule her for a screening colonoscopy. Job ID: [id number] DocumentID: [id number] Dictated Date: 12/26/2022 18:34:37 Research Support Specialist Date: 12/26/2022 19:24:00 Dictated By: SCOTT PRIETO MD
[~2023-01-16] VITALS: Ht 157.5 cm; Wt 109.1 kg
[~2023-01-16 09:44] MED LIST changes: +ASPI-999 PO; +BIOT10005 PO; +CALC-250 PO; +CALC-852 PO; +DICL75TA2 PO; +ESCI20TA39 PO; +LISI20TA26 PO; +MULT1CAP54 PO; +PANT40TA52 PO; +POTA-51 PO; +TRIA1CAP84 PO
--- NOTE | 2023-01-16 10:04 | Progress Note-Pre Operative ---
Pre-Operative Progress Note Date of Available H&P: Jan 16, 2023 Date H&P Reviewed: Jan 16, 2023 Time H&P Reviewed: 09:30 History & Physical: No changes noted Pre-Operative Diagnosis: screening o SCOTT PRIETO MD Jan 16, 2023 10:04
[2023-01-16] MEDS ORDERED: LACTATED RINGERS 1,000 ML IV STA (10:05)
--- NOTE | 2023-01-16 10:05 | Discharge Inst-Surgical ---
D/C Lap Instructions-CONNER Follow Up Activity as tolerated High Fiber Diet 25g or more per day Avoid Alcohol, Caffeine, Spicy [place] and Acid foods. Drink 64 fluid oz or more of fluids per day. Symptoms to Report: Fever over 101 degree F, Nausea/Vomiting If any problems/questions: Contact your physician or go to Emergency Room SCOTT PRIETO MD Jan 16, 2023 10:05
[2023-01-16 10:13] VITALS: BP 143/74
[2023-01-16] MEDS ORDERED: PROPOFOL INJECTION 50 ML IV ONE (10:13)
[2023-01-16] MEDS ORDERED: ONDANSETRON 4 MG/2 ML (SDV) Z0FRAN IVP PRN (10:15)
[2023-01-16] MEDS ORDERED: LIDOCAINE JELLY 2% 6 ML SYRINGE MM PRN (10:15)
[2023-01-16] MEDS ORDERED: ONDANSETRON 4 MG (ZOFRAN) ORAL DISSOLVE TAB PO PRN (10:15)
[2023-01-16] MEDS ORDERED: LIDOCAINE JELLY 2% 6 ML SYRINGE ONE (10:16)
[2023-01-16] MEDS ORDERED: proPOfol 200 MG/20 ML (DIPRIVAN) VIAL IV ONE (10:59)
[2023-01-16 11:00] VITALS: BP 103/55
[2023-01-16 11:05] VITALS: BP 105/59
--- NOTE | 2023-01-16 11:09 | Progress Note-Post Operative ---
Post-Operative Progess Note Surgeon (s)/Usability Architect (s) Surgeon SCOTT PRIETO MD Usability Architect: none Pre-Operative Diagnosis screening colo Post-Operative Diagnosis mild chronic stage 2 ext and int hemorrhoids, mild sigmoid diverticulosis. Procedure & Operative Findings Date of Procedure 01/16/23 Procedure Performed/Findings colonoscopy Anesthesia Type mac Estimated Blood Loss Estimated blood loss (mL): minimal Specimens/Packing Specimens Removed none SCOTT PRIETO MD Jan 16, 2023 11:09
--- NOTE | 2023-01-16 11:19 | Anesthesia-General Post-Op ---
MAC Patient Condition Mental Status/LOC: Same as Preop Cardiovascular: Satisfactory Nausea/Vomiting: Absent Respiratory: Satisfactory Pain: Controlled Complications: Absent Post Op Complications Complications None Follow Up Care/Instructions Patient Instructions None needed. Anesthesiology Discharge Order Discharge Order Patient is doing well, no complaints, stable vital signs, no apparent adverse anesthesia problems. No complications reported per nursing. ELOY ORTIZ DO Jan 16, 2023 11:19
[2023-01-16 11:35] VITALS: BP 149/78
--- NOTE | 2023-01-16 18:51 | OPERATIVE REPORT ---
DATE OF SERVICE: 01/16/2023 ATTENDING PRIMARY CARE PHYSICIAN: Dr. Amaris Vaz. PREOPERATIVE DIAGNOSIS: Screening colonoscopy. POSTOPERATIVE DIAGNOSES: Mild chronic stage II external and internal hemorrhoids, mild sigmoid diverticulosis. PROCEDURE: Colonoscopy. SURGEON: Scott Prieto MD ANESTHESIA: Monitored anesthesia care. ESTIMATED BLOOD LOSS: Minimal. FINDINGS: Mild chronic stage II external and internal hemorrhoids, mild sigmoid diverticulosis. DISPOSITION: The patient tolerated the procedure well. INDICATIONS: The patient is a 67-year-old female known to us. She was referred over to us for screening colonoscopy. Her last colonoscopy was greater than 10 years ago. She states that this was normal; however, she states that she does have some intermittent episodes of constipation; however, not severe. She does not report any red blood per rectum, nor any dark tarry stools. She does have a first-degree family history of colon cancer with her mother being diagnosed with the disease at what she believes as an advanced age. DESCRIPTION OF PROCEDURE: The patient was brought to the endoscopy suite, laid in the left lateral decubitus position. After adequate IV pain and sedative medications and monitored anesthesia care, a digital rectal examination was performed. Mild chronic stage II external and internal hemorrhoids were identified, which were not actively edematous nor inflamed and no bleeding. Normal sphincter tone was felt and there were no palpable masses. The endoscope was then intubated into the anus and the rectum gently insufflated. The endoscope was then advanced through the valves of Carpenter of the rectum with no polyps or any neoplasms identified. Through the sigmoid colon, mild sigmoid diverticulosis identified. The endoscope was then advanced to the remainder of the descending, transverse and ascending colon to the cecum, which were normal. There were no polyps or any neoplasms identified. The endoscope was then slowly withdrawn while taking a second look and suctioning of residual air with no additional findings. The patient tolerated the procedure well. We will recommend high-fiber diet with addition of a high fiber supplement, which should equal or exceed 25 grams daily and significant amounts of water to promote soft consistency stools on a daily basis. She does have a first-degree family history of colon cancer and the recommendation would be that she proceed with followup colonoscopies every 5 years. However, we will give her the decision. Job ID: [id number] DocumentID: [id number] Dictated Date: 01/16/2023 11:03:11 Inventory Clerk Date: 01/16/2023 18:48:00 Dictated By: SCOTT PRIETO MD
== END 2023-01-16 11:47 | disposition home or self-care (01) ==
LOC: ENDO 09:44
PROVIDERS: ATTEND Surgery
DX: Z12.11 Encounter for screening for malignant neoplasm of colon (principal); K57.30 Diverticulosis of large intestine without perforation or abscess without bleeding; K64.1 Second degree hemorrhoids; K64.4 Residual hemorrhoidal skin tags; Z80.0 Family history of malignant neoplasm of digestive organs; E66.01 Morbid (severe) obesity due to excess calories; Z68.41 Body mass index [BMI] 40.0-44.9, adult